=== PATIENT | female | born 1940 | race Caucasian/White ===

== ENCOUNTER 2019-07-24 22:24 | Inpatient (IN) | payer MEDICARE, OTHER ==
--- NOTE | 2019-07-24 22:49 | ED ---
General Adult HPI - General Chief complaint: Dizziness Stated complaint: Dizziness Time Seen by Provider: 07/24/19 22:37 Source: patient Mode of arrival: wheelchair Limitations: no limitations - History of Present Illness Initial comments: Dictation was produced using [employer] dictation software. please excuse any grammatical, word or spelling errors. This patient was cared for during a federal and state declared state of emergency secondary to Covid 19 Chief Complaint: 79-year-old female past medical history of cancer, dyslipidemia hypertension presents with generalized weakness, dizziness and vomiting. History of Present Illness: 79-year-old female. She is accompanied by HER-2 family members. According to family members starting at 7 PM patient began feeling significantly ill. The last couple days she's been having increased confusion, nausea, vomiting, generalized weakness. She is recently started on antibiotics for concerns of urinary tract infection. According to family member patient has had UTI sepsis in the past. Patient states she does have some dysuria. She does feel feverish. Granddaughter at bedside looks in the medical field is concerned about her well-being. Patient denies any focal neurologic de ficits. Denies vision loss. Denies any neck pain. She does have mild frontal headache. The ROS documented in this emergency department record has been reviewed and confirmed by me. Those systems with pertinent positive or negative responses have been documented in the HPI. All other systems are other negative and/or noncontributory. PHYSICAL EXAM: General Impression: Alert and oriented x3, lethargic HEENT: Normocephalic atraumatic, extra-ocular movements intact, pupils equal and reactive to light bilaterally, dry mucous membranes Cardiovascular: Heart regular rate and rhythm Chest: Mildly dyspneic Abdomen: abdomen soft, non-tender, non-distended, no organomegaly Musculoskeletal: Pulses present and equal in all extremities, no peripheral edema Motor: no focal deficits noted Neurological: CN II-XII grossly intact, no focal motor or sensory deficits noted Skin: Intact with no visualized rashes Psych: Normal affect and mood ED course: 79-year-old female presents today with generalized weakness, nausea vomiting. Vital signs upon arrival shows heart rate of 12, pulse vital signs within acceptable limits. She does report constitutional symptoms. Laboratory evaluation obtained. CBC unremarkable. Coag panel unremarkable. Metabolic panel shows mild anion gap acidosis. Rest of metabolic panel is negative. Coronavirus test is negative. Chest x-ray shows multifocal infil trates. Brain CT is unremarkable for any acute processes. Results were discussed with patient and family members. Disposition options were offered. They requested that patient be admitted to the hospital for medical monitoring. Patient is showing some signs of respiratory distress. She is not hypoxic however. Family reports that there is no safe disposition options considering that there are other multiple individuals that patient's living quarters. Discussed patient case with Dr. Marks who requests the patient be started on Lovenox, antibiotics and steroids. Dr. Marks is willing to accept patients care. EKG interpretation: Ventricular rate 93, normal sinus rhythm,. Interval to 8, QRS 96, QTC 450. No WA prolongation, no QTC prolongation, no ST or T-wave changes noted. . Overall, this EKG is unremarkable - Related Data Allergies Allergy/AdvReac Type Severity Reaction Status Date / Time acetaminophen [From Tylenol] Allergy Swelling Verified 07/24/19 22:35 Review of Systems ROS Statement: Those systems with pertinent positive or pertinent negative responses have been documented in the HPI. ROS Other: All systems not noted in ROS Statement are negative. Past Medical History Past Medical History: Cancer, Hyperlipidemia, Hypertension Additional Past Medical History / Comment(s): colon cancer History of Any Multi-Drug Resistant Organisms: None Reported Past Surgical History: Orthopedic Surgery Additional Past Surgical History / Comment(s): hip replacment. Past Psychological History: No Psychological Hx Reported Smoking Status: Never smoker Past Alcohol Use History: None Reported Past Drug Use History: None Reported General Exam Limitations: no limitations Course Vital Signs 07/24/19 22:27 Temperature 98.9 F Pulse Rate 102 H Respiratory 18 Rate Blood Pressure 170/98 O2 Sat by Pulse 96 Oximetry Medical Decision Making - Lab Data Result diagrams: 07/24/19 22:50 07/24/19 22:50 Lab Results 07/24/19 07/24/19 07/24/19 Range/Units 22:50 22:50 22:50 WBC 7.0 (3.8-10.6) k/uL RBC 3.83 (3.80-5.40) m/uL Hgb 11.7 (11.4-16.0) gm/dL Hct 36.8 (34.0-46.0) % MCV 96.1 (80.0-100.0) fL MCH 30.6 (25.0-35.0) pg MCHC 31.9 (31.0-37.0) g/dL RDW 13.2 (11.5-15.5) % Plt Count 283 (150-450) k/uL Neutrophils % 80 % Lymphocytes % 7 % Monocytes % 8 % Eosinophils % 2 % Basophils % 0 % Neutrophils # 5.6 (1.3-7.7) k/uL Lymphocytes # 0.5 L (1.0-4.8) k/uL Monocytes # 0.5 (0-1.0) k/uL Eosinophils # 0.2 (0-0.7) k/uL Basophils # 0.0 (0-0.2) k/uL PT 9.9 (9.0-12.0) sec INR 0.9 (<1.2) APTT 24.0 (22.0-30.0) sec Sodium (137-145) mmol/L Potassium (3.5-5.1) mmol/L Chloride (98-107) mmol/L Carbon Dioxide (22-30) mmol/L Anion Gap mmol/L BUN (7-17) mg/dL Creatinine (0.52-1.04) mg/dL Est GFR (CKD-EPI)AfAm (>60 ml/min/1.73 sqM) Est GFR (CKD-EPI)NonAf (>60 ml/min/1.73 sqM) Glucose (74-99) mg/dL Plasma Lactic Acid Luis (0.7-2.0) mmol/L Calcium (8.4-10.2) mg/dL Magnesium (1.6-2.3) mg/dL Total Bilirubin (0.2-1.3) mg/dL AST (14-36) U/L ALT (4-34) U/L Alkaline Phosphatase (38-126) U/L Troponin I (0.000-0.034) ng/mL C-Reactive Protein (<10.0) mg/L Total Protein (6.3-8.2) g/dL Albumin (3.5-5.0) g/dL Coronavirus (PCR) Detected A (Not Detectd) 07/24/19 07/24/19 07/24/19 Range/Units 22:50 22:50 22:50 WBC (3.8-10.6) k/uL RBC (3.80-5.40) m/uL Hgb (11.4-16.0) gm/dL Hct (34.0-46.0) % MCV (80.0-100.0) fL MCH (25.0-35.0) pg MCHC (31.0-37.0) g/dL RDW (11.5-15.5) % Plt Count (150-450) k/uL Neutrophils % % Lymphocytes % % Monocytes % % Eosinophils % % Basophils % % Neutrophils # (1.3-7.7) k/uL Lymphocytes # (1.0-4.8) k/uL Monocytes # (0-1.0) k/uL Eosinophils # (0-0.7) k/uL Basophils # (0-0.2) k/uL PT (9.0-12.0) sec INR (<1.2) APTT (22.0-30.0) sec Sodium 133 L (137-145) mmol/L Potassium 4.2 (3.5-5.1) mmol/L Chloride 100 (98-107) mmol/L Carbon Dioxide 21 L (22-30) mmol/L Anion Gap 12 mmol/L BUN 16 (7-17) mg/dL Creatinine 0.74 (0.52-1.04) mg/dL Est GFR (CKD-EPI)AfAm 89 (>60 ml/min/1.73 sqM) Est GFR (CKD-EPI)NonAf 77 (>60 ml/min/1.73 sqM) Glucose 121 H (74-99) mg/dL Plasma Lactic Acid Luis 0.9 (0.7-2.0) mmol/L Calcium 9.6 (8.4-10.2) mg/dL Magnesium 2.0 (1.6-2.3) mg/dL Total Bilirubin 1.0 (0.2-1.3) mg/dL AST 23 (14-36) U/L ALT 15 (4-34) U/L Alkaline Phosphatase 109 (38-126) U/L Troponin I <0.012 (0.000-0.034) ng/mL C-Reactive Protein 14.9 H (<10.0) mg/L Total Protein 7.6 (6.3-8.2) g/dL Albumin 4.3 (3.5-5.0) g/dL Coronavirus (PCR) (Not Detectd) Disposition Clinical Impression: COVID-19 Disposition: ADMITTED IP TO THIS HOSP Condition: Fair Referrals: Gerard Hernandez DO [Primary Care Provider] - 1-2 days Decision Time: 23:44
[2019-07-24 23:08] LABS: Basophils % (A) 0 %; Eosinophils # (A) 0.2 k/uL (0-0.7); Eosinophils % (A) 2 %; HCT 36.8 % (34.0-46.0); HGB 11.7 gm/dL (11.4-16.0); Lymphocytes # (A) 0.5 k/uL (1.0-4.8); Lymphocytes % (A) 7 %; MCH 30.6 pg (25.0-35.0); MCHC 31.9 g/dL (31.0-37.0); MCV 96.1 fL (80.0-100.0); Monocytes # (A) 0.5 k/uL (0-1.0); Monocytes % (A) 8 %; Neutrophils # (A) 5.6 k/uL (1.3-7.7); Neutrophils % (A) 80 %; Platelet Count 283 k/uL (150-450); RBC 3.83 m/uL (3.80-5.40); RDW 13.2 % (11.5-15.5)
[2019-07-24] MEDS ORDERED: ONDANSETRON 4 MG/2 ML VIAL IVP STA (23:13)
[2019-07-24 23:16] LABS: INR 0.9 (<1.2); Prothrombin Time 9.9 sec (9.0-12.0)
--- NOTE | 2019-07-24 23:16 | CT ---
EXAMINATION TYPE: CT brain wo con DATE OF EXAM: 07/24/2019 HISTORY: Confusion and headache, history of CVA. CT DLP: 1172.4 mGycm. Automated Exposure Control for Dose Reduction was Utilized. TECHNIQUE: CT scan of the head is performed without contrast. COMPARISON: None. FINDINGS: There is no acute intracranial hemorrhage or midline shift identified. There is diffuse v entricular and sulcal prominence consistent with diffuse cerebral atrophy. There is low-attenuation in the deep and periventricular white matter consistent with chronic small vessel ischemic change. Ol d infarct right frontal lobe axial image 33 is noted . The globes are intact and the visualized sinus es are clear. Vascular calcification distal bilateral internal carotid arteries is seen. IMPRESSION: No acute intracranial hemorrhage or midline shift. There is moderate diffuse cerebral a trophy and chronic small vessel ischemic change with old right frontal lobe infarct are noted..
--- NOTE | 2019-07-24 23:18 | XR ---
EXAMINATION TYPE: XR chest 1V portable DATE OF EXAM: 07/24/2019 COMPARISON: Chest x-ray November 09, 2011. HISTORY: Weakness. TECHNIQUE: Single AP portable frontal upright view of the chest is obtained. FINDINGS: There is chronic parenchymal change with multifocal areas of increased opacity bilaterally greatest in the lateral aspect right upper lung. No pleural effusion or pneumothorax identified anaid aterally. The cardiac silhouette size remains enlarged. Underlying distal convex scoliosis centered l ower thoracic spine. Metallic hardware from right shoulder arthroplasty partially imaged similar to p shaunnar. IMPRESSION: Chronic parenchymal changes and cardiomegaly with multifocal areas of acute infiltrate a nd/or atelectasis including both bases with most prominent area of involvement lateral aspect right u pper to midlung. COVID pneumonia is in differential.
[2019-07-24 23:22] LABS: Albumin 4.3 g/dL (3.5-5.0); C Reactive Protein 14.9 mg/L (<10.0); Calcium 9.6 mg/dL (8.4-10.2); Potassium 4.2 mmol/L (3.5-5.1); Total Protein 7.6 g/dL (6.3-8.2)
[2019-07-24] MEDS ORDERED: POLYETHYLENE GLYCOL 3350 17 GM POWD.PACK PO STA (23:38)
[2019-07-24] MEDS ORDERED: NALOXONE 0.4 MG/ML 1 ML VIAL IV PRN (23:38)
[2019-07-24 23:39] LABS: Appearance,Urine Clear (Clear); Bilirubin,Urine 1+ (Negative); Blood,Urine Negative (Negative); Color,Urine Dark Orange; Glucose,Urine (UA) Negative (Negative); Ketones,Urine Trace (Negative); Leukocyte Esterase,Urine Negative (Negative); Mucus,Urine Rare /hpf; Nitrite,Urine Positive (Negative); PH, Urine 6.5 (5.0-8.0); Protein,Urine Trace (Negative); RBC,Urine 1 /hpf (0-5); Specific Gravity,Urine 1.017 (1.001-1.035); Squamous Epithelial Cell,Urine 2 /hpf (0-4); WBC,Urine <1 /hpf (0-5)
[2019-07-24] MEDS ORDERED: cefTRIAXone IN SWFI 1,000 MG/10 ML SYRINGE IVP STA (23:42)
[2019-07-24] MEDS ORDERED: DEXAMETHASONE 4 MG TAB PO STA (23:42)
[2019-07-24] MEDS ORDERED: METOCLOPRAMIDE 5 MG/ML 2 ML VIAL IVP STA (23:54)
[2019-07-25] MEDS: SODIUM CHLORIDE 0.9% 1,000 ML IV SCH (00:01)
[2019-07-25] MEDS: ENOXAPARIN 40 MG/0.4 ML SYRINGE SQ SCH ×2 (00:02→09:08)
[2019-07-25] MEDS: FAMOTIDINE 20 MG TAB PO SCH ×2 (09:08→22:37)
[2019-07-25] MEDS ORDERED: HYDROcodone/APAP 5-325MG 1 EACH TAB PO PRN (10:49)
[2019-07-25] MEDS: AMOXIC-POT CLAV 500-125 MG 1 EACH TAB PO SCH ×2 (11:45→22:38)
[2019-07-25] MEDS: ATORVASTATIN 10 MG TAB PO SCH (11:45)
[2019-07-25] MEDS: LABETALOL 100 MG TAB PO SCH ×2 (11:46→22:38)
--- NOTE | 2019-07-25 13:31 | P.CNPUL ---
History of Present Illness Consult date: 07/25/19 Requesting physician: Constantin Marks Reason for consult: abnormal CXR/CT Chief complaint: Altered mental status, generalized weakness History of present illness: This is a pleasant 79-year-old female patient who follows with Dr. Zamorano as her primary care provider. She has a history of colon cancer, hypertension, hyperlipidemia. Over the past several days the patient had been having increas ed confusion, nausea, vomiting, generalized weakness. She was initiated on a antibiotic recently for urinary tract infection which she has had in the past. Computed tomography scan of the brain revealed no acute intracranial hemorrhage or midline shift. There is moderate diffuse cerebral atrophy and chronic small vessel changes with old right frontal lobe infarct. Chest x-ray revealed chronic parenchymal changes and cardiomegaly with multifocal areas of acute infiltrate and atelectasis with the most prominent area involving the right upper to mid lung. White count 7.0. Hemoglobin 11.7. Lymphocytes 0.5. D- dimer 0.51. Sodium 133. Potassium 4.2. Bicarb 21. Creatinine 0.74. Glucose 121. Troponins negative 2. LDH 506. C-reactive protein 14.9. Urine culture positive for nitrates. Hernandez virus by PCR is detected. She is seen today in consultation on the regular medical floor. She is currently awake and alert. Somewhat restless in bed. She denies any shortness of breath, cough or congestion. She is maintaining O2 saturations in the mid 90s on room air. Currently afebrile. Slightly tachycardic. She has been initiated on Augmentin, Plaquenil, Lovenox. Review of Systems REVIEW OF SYSTEMS: CONSTITUTIONAL: Altered mental status, generalized weakness. Denies any recent significant weight loss or weight gain. EYES: Denies change in vision. EARS, NOSE, MOUTH, THROAT: Denies headaches, denies sore throat. CARDIOVASCULAR: Denies chest pain, palpitations or syncopal episodes. RESPIRATORY: Positive for shortness of breath, cough, congestion no hemoptysis. GASTROINTESTINAL: Denies change in appetite, denies abdominal pain GENITOURINARY: Denies hematuria, denies infections. MUSKULOSKELETAL: Denies pain, denies swelling. INTEGUMENTARY: Denies rash, denies eczema. NEUROLOGICAL: Positive for recent memory loss, no recent seizure activity. PSYCHIATRIC: Denies anxiety, denies depression. HEMATOLOGIC/LYMPHATIC: Denies anemia, denies enlarged lymph nodes. Past Medical History Past Medical History: Cancer, Hyperlipidemia, Hypertension Additional Past Medical History / Comment(s): colon cancer History of Any Multi-Drug Resistant Organisms: None Reported Past Surgical History: Orthopedic Surgery Additional Past Surgical History / Comment(s): hip replacment. Past Psychological History: No Psychological Hx Reported Smoking Status: Unknown if ever smoked Past Alcohol Use History: None Reported Past Drug Use History: None Reported - Past Family History Father Additional Family Medical History / Comment(s): pt unable to give history Medications and Allergies Home Medications Medication Instructions Recorded Confirmed Type Amoxic-Pot Clav 500-125 mg 1 tab PO Q12HR 07/25/19 07/25/19 History [Augmentin 500-125 mg] Atorvastatin [Lipitor] 10 mg PO DAILY 07/25/19 07/25/19 History HYDROcodone/APAP 5-325MG [[place] 1 tab PO Q6H PRN 07/25/19 07/25/19 History 5-325] Labetalol HCl 100 mg PO BID 07/25/19 07/25/19 History hydrOXYzine HCL 25 mg PO Q6H PRN 07/25/19 07/25/19 History Allergies Allergy/AdvReac Type Severity Reaction Status Date / Time acetaminophen [From Tylenol] Allergy Swelling Verified 07/25/19 08:44 Physical Exam Vitals: Vital Signs Temp Pulse Pulse Resp BP BP Pulse Ox 07/25/19 11:25 98 F 104 H 17 146/82 97 07/25/19 08:05 98.2 F 98 18 145/75 97 07/25/19 04:00 18 07/25/19 03:47 98.7 F 106 H 18 136/84 96 07/25/19 02:05 18 07/25/19 01:29 99.0 F 105 H 18 158/89 99 07/24/19 22:27 98.9 F 102 H 18 170/98 96 Intake and Output 07/24/19 07/25/19 07/25/19 22:59 06:59 14:59 Other: Voiding Method Toilet Toilet Bedside Commode Bedside Commode # Voids 2 2 # Bowel Movements 2 Weight 54.431 kg 54.431 kg GENERAL EXAM: Alert, active, pleasant 79-year-old female patient, on room air, comfortable in no apparent distress. HEAD: Normocephalic. EYES: Normal reaction of pupils, equal size. NOSE: Clear with pink turbinates. THROAT: No erythema or exudates. NECK: No masses, no JVD. CHEST: No chest wall deformity. LUNGS: Equal air entry with bilateral scattered rhonchi. CVS: S1 and S2 normal with no audible murmur, regular rhythm. ABDOMEN: No hepatosplenomegaly, normal bowel sounds, no guarding or rigidity. SPINE: No scoliosis or deformity SKIN: No rashes CENTRAL NERVOUS SYSTEM: No focal deficits, tone is normal in all 4 extremities. EXTREMITIES: There is no peripheral edema. No clubbing, no cyanosis. Peripheral pulses are intact. Results - Laboratory Findings CBC and BMP: 07/24/19 22:50 07/24/19 22:50 PT/INR, D-dimer PT 9.9 sec (9.0-12.0) 07/24/19 22:50 INR 0.9 (<1.2) 07/24/19 22:50 D-Dimer 0.51 mg/L FEU (<0.60) 07/25/19 10:25 Abnormal lab findings: Abnormal Labs 07/24/19 07/24/19 07/24/19 22:50 22:50 22:50 Lymphocytes # 0.5 L Sodium 133 L Carbon Dioxide 21 L Glucose 121 H C-Reactive Protein 14.9 H Urine Protein Urine Ketones Urine Nitrite Urine Bilirubin Urine Mucus Coronavirus (PCR) Detected A 07/24/19 23:20 Lymphocytes # Sodium Carbon Dioxide Glucose C-Reactive Protein Urine Protein Trace H Urine Ketones Trace H Urine Nitrite Positive H Urine Bilirubin 1+ H Urine Mucus Rare H Coronavirus (PCR) - Diagnostic Findings Chest x-ray: image reviewed Assessment and Plan Assessment: Altered mental status, generalized weakness, shortness of breath secondary to CoVID 19 pneumonitis Acute urinary tract infection Hypertension Hyperlipidemia History of colon cancer Plan: The patient was seen and evaluated by Dr. James Initiated on Plaquenil, Augmentin, Lovenox Repeat chest x-ray in a.m. Repeat inflammatory markers in the a.m. We'll continue to follow and make further recommendations based on her clinical status I, the cosigning physician, performed a history & physical examination of the patient. Lungs sounds with bilateral scattered rhonchi. Maintaining good O2 saturations in the 90s on room air. I discussed the assessment and plan of care with my nurse practitioner, Simona Miller. I attest to the above consultation as dictated by her. Time with Patient: Greater than 30
[2019-07-25] MEDS: HYDROXYCHLOROQUINE SULFATE 200 MG TAB PO SCH ×2 (14:13→22:37)
--- NOTE | 2019-07-25 17:06 | P.HPIM ---
History of Present Illness H&P Date: 07/25/19 Chief Complaint: Weakness History of presenting complaint: This is a 79-year-old patient of Dr. Gerard Zamorano. Presented zoster through the ER. Patient presented to family members. Patient the evening and started feeling rather ill. The last 2 days she was having somewhat confusion nausea vomiting generalized weakness. He was recently started antibiotics for a UTI. She has been feeling feverish. Slight headache. Patient tested positive for COVID in the ER. Patient is put on plaque on her. Subcu Lovenox. ID and pulmonary were consulted. When I tried interview the patient this morning. Patient rather tired. Doesn't give much more of a history. Wants to be left alone Review of systems: GEN.: Tired feverish EYES: None HEENT: None NECK: None RESPIRATORY: Short of breath slight cough CARDIOVASCULAR: None GASTROINTESTINAL: None GENITOURINARY: None MUSCULOSKELETAL: Joint pains LYMPHATICS: None HEMATOLOGICAL: None PSYCHIATRY: Some confusion NEUROLOGICAL: None Past medical history to include: Hyperlipidemia, hypertension, colon cancer, arthritis Social history: Apparently lives with daughter. No history of smoking or alcohol. Family history: Patient cannot tell Physical examination: VITAL SIGNS: 98.9, 1 or 2, 18, 158/89, 99% on room air GENERAL: BMI 21.9, laying in bed, bit uncomfortable. EYES: Pupils equal. Conjunctiva normal. HEENT: External appearance of nose and ears normal, oral cavity grossly normal. NECK: JVD not raised; masses not palpable. HEART: First and second heart sounds are normal; no edema. LUNGS: Respiratory rate increased; decreased breath sounds. ABDOMEN: Soft, nontender, liver spleen not palpable, no masses palpable. PSYCH: [Patient only Hitesh occasional questions l. MUSCULOSKELETAL: Evidence of OA in multiple joints NEUROLOGICAL: [Cranial nerves grossly intact; no facial asymmetry, moving all 4 limbs LYMPHATICS: No lymph nodes palpable in the axilla and neck INVESTIGATIONS, reviewed in the clinical context: White count 7 hemoglobin 11.7 platelets 283 lymphocytes decreased at 0.5 potassium 4.2 creatinine 0.74 d-dimer 0.51 CRP 40.9 UA positive for nitrite COVID-19 PCR-detected EKG tracing personally reviewed by me-normal sinus rhythm Chest x-ray film personally reviewed by me-multiple infiltrates Assessment: -COVID-19 pneumonia multifocal, POA -Acute metabolic encephalopathy with delirium due to above, POA -Essential hypertension -Hyperlipidemia -Primary osteoarthritis -Acute UTI from cystitis Plan: Patient admitted. Started on Plaquenil. And IV fluids. Also therapeutic dose of Lovenox. Prognosis guarded. Both pulmonary and ID were consulted. Past Medical History Past Medical History: Cancer, Hyperlipidemia, Hypertension Additional Past Medical History / Comment(s): colon cancer History of Any Multi-Drug Resistant Organisms: None Reported Past Surgical History: Orthopedic Surgery Additional Past Surgical History / Comment(s): hip replacment. Past Psychological History: No Psychological Hx Reported Smoking Status: Unknown if ever smoked Past Alcohol Use History: None Reported Past Drug Use History: None Reported - Past Family History Father Additional Family Medical History / Comment(s): pt unable to give history Medications and Allergies Home Medications Medication Instructions Recorded Confirmed Type Amoxic-Pot Clav 500-125 mg 1 tab PO Q12HR 07/25/19 07/25/19 History [Augmentin 500-125 mg] Atorvastatin [Lipitor] 10 mg PO DAILY 07/25/19 07/25/19 History HYDROcodone/APAP 5-325MG [[place] 1 tab PO Q6H PRN 07/25/19 07/25/19 History 5-325] Labetalol HCl 100 mg PO BID 07/25/19 07/25/19 History hydrOXYzine HCL 25 mg PO Q6H PRN 07/25/19 07/25/19 History Allergies Allergy/AdvReac Type Severity Reaction Status Date / Time acetaminophen [From Tylenol] Allergy Swelling Verified 07/25/19 08:44 Physical Exam Vitals: Vital Signs Temp Pulse Pulse Resp BP BP Pulse Ox 07/25/19 08:05 98.2 F 98 18 145/75 97 07/25/19 04:00 18 07/25/19 03:47 98.7 F 106 H 18 136/84 96 07/25/19 02:05 18 07/25/19 01:29 99.0 F 105 H 18 158/89 99 07/24/19 22:27 98.9 F 102 H 18 170/98 96 Intake and Output 07/24/19 07/25/19 07/25/19 22:59 06:59 14:59 Other: Voiding Method Toilet Toilet Bedside Commode Bedside Commode # Voids 2 2 # Bowel Movements 2 Weight 54.431 kg 54.431 kg Results CBC & Chem 7: 07/24/19 22:50 07/24/19 22:50 Labs: Abnormal Lab Results - Last 24 Hours (Table) 07/24/19 07/24/19 07/24/19 Range/Units 22:50 22:50 22:50 Lymphocytes # 0.5 L (1.0-4.8) k/uL Sodium 133 L (137-145) mmol/L Carbon Dioxide 21 L (22-30) mmol/L Glucose 121 H (74-99) mg/dL C-Reactive Protein 14.9 H (<10.0) mg/L Urine Protein (Negative) Urine Ketones (Negative) Urine Nitrite (Negative) Urine Bilirubin (Negative) Urine Mucus (None) /hpf Coronavirus (PCR) Detected A (Not Detectd) 07/24/19 Range/Units 23:20 Lymphocytes # (1.0-4.8) k/uL Sodium (137-145) mmol/L Carbon Dioxide (22-30) mmol/L Glucose (74-99) mg/dL C-Reactive Protein (<10.0) mg/L Urine Protein Trace H (Negative) Urine Ketones Trace H (Negative) Urine Nitrite Positive H (Negative) Urine Bilirubin 1+ H (Negative) Urine Mucus Rare H (None) /hpf Coronavirus (PCR) (Not Detectd)
[2019-07-25] MEDS: LACTATED RINGERS 1,000 ML IV SCH (17:17)
[2019-07-25] MEDS: ENOXAPARIN 60 MG/0.6 ML SYRINGE SQ SCH (22:38)
--- NOTE | 2019-07-25 23:34 | P.CONS ---
History of Present Illness - Reason for Consult Consult date: 07/25/19 COVID 19 pneumonia Requesting physician: Constantin Marks - Chief Complaint weakness and cough x few days - History of Present Illness Patient is 79-year-old female with a past medical significant for colon cancer hypertension hyperlipidemia patient has been brought into the ER at [facility] with the patient starting getting ill last night patient was noted to have increased confusion and nausea and generalized weakness apparently recently completed course of antibiotic for UTI patient on presentation to the hospital has been afebrile she did have a normal white count however did have lymphopenia levels of normal CRP elevated LDH 506 urine was not significantly positive rodríguez PCR was positive CT of the brain was negative for any bleed chest x-ray did shows multifocal areas of acute infiltrate and atelectasis patient has been diagnosed with acute COVID-19 pneumonia she has been admitted to the floor infectious disease was consulted for further management of antibiotic therapy patient remains to be pleasantly confused and was unable to provide any history most information has been obtained from review the chart. Review of Systems Positive point has been mentioned in HPI complete review could not be obtained because of underlying mental status Past Medical History Past Medical History: Cancer, Hyperlipidemia, Hypertension Additional Past Medical History / Comment(s): colon cancer History of Any Multi-Drug Resistant Organisms: None Reported Past Surgical History: Orthopedic Surgery Additional Past Surgical History / Comment(s): hip replacment. Past Psychological History: No Psychological Hx Reported Smoking Status: Unknown if ever smoked Past Alcohol Use History: None Reported Past Drug Use History: None Reported - Past Family History Father Additional Family Medical History / Comment(s): pt unable to give history Medications and Allergies Home Medications Medication Instructions Recorded Confirmed Type Amoxic-Pot Clav 500-125 mg 1 tab PO Q12HR 07/25/19 07/25/19 History [Augmentin 500-125 mg] Atorvastatin [Lipitor] 10 mg PO DAILY 07/25/19 07/25/19 History HYDROcodone/APAP 5-325MG [[place] 1 tab PO Q6H PRN 07/25/19 07/25/19 History 5-325] Labetalol HCl 100 mg PO BID 07/25/19 07/25/19 History hydrOXYzine HCL 25 mg PO Q6H PRN 07/25/19 07/25/19 History Allergies Allergy/AdvReac Type Severity Reaction Status Date / Time acetaminophen [From Tylenol] Allergy Swelling Verified 07/25/19 08:44 Physical Exam Vitals: Vital Signs Temp Pulse Pulse Resp BP BP Pulse Ox 07/25/19 08:05 98.2 F 98 18 145/75 97 07/25/19 04:00 18 07/25/19 03:47 98.7 F 106 H 18 136/84 96 07/25/19 02:05 18 07/25/19 01:29 99.0 F 105 H 18 158/89 99 07/24/19 22:27 98.9 F 102 H 18 170/98 96 Intake and Output 07/24/19 07/25/19 07/25/19 22:59 06:59 14:59 Other: Voiding Method Toilet Toilet Bedside Commode Bedside Commode # Voids 2 2 # Bowel Movements 2 Weight 54.431 kg 54.431 kg GENERAL DESCRIPTION: Elderly female lying in bed, no distress. No tachypnea or accessory muscle of respiration use. HEENT: Shows Pallor , no scleral icterus. Oral mucous membrane is dry. NECK: Trachea central, no thyromegaly. LUNGS: Unlabored breathing. Decreased intensity breath sound. No wheeze or crackle. HEART: S1, S2, regular rate and rhythm. ABDOMEN: Soft, no tenderness , guarding or rigidity EXTREMITIES: No edema of feet. SKIN: No rash, no masses palpable. NEUROLOGICAL: The patient is awake, but pleasantly confused orientation could not determined. Results CBC & Chem 7: 07/24/19 22:50 07/24/19 22:50 Labs: Abnormal Lab Results - Last 24 Hours (Table) 07/24/19 07/24/19 07/24/19 Range/Units 22:50 22:50 22:50 Lymphocytes # 0.5 L (1.0-4.8) k/uL Sodium 133 L (137-145) mmol/L Carbon Dioxide 21 L (22-30) mmol/L Glucose 121 H (74-99) mg/dL C-Reactive Protein 14.9 H (<10.0) mg/L Urine Protein (Negative) Urine Ketones (Negative) Urine Nitrite (Negative) Urine Bilirubin (Negative) Urine Mucus (None) /hpf Coronavirus (PCR) Detected A (Not Detectd) 07/24/19 Range/Units 23:20 Lymphocytes # (1.0-4.8) k/uL Sodium (137-145) mmol/L Carbon Dioxide (22-30) mmol/L Glucose (74-99) mg/dL C-Reactive Protein (<10.0) mg/L Urine Protein Trace H (Negative) Urine Ketones Trace H (Negative) Urine Nitrite Positive H (Negative) Urine Bilirubin 1+ H (Negative) Urine Mucus Rare H (None) /hpf Coronavirus (PCR) (Not Detectd) Assessment and Plan Assessment: patient presented to hospital mental status changes confusion and weakness and a cough and this patient chest x-ray shows evidence of multifocal infiltrate patient did have lymphopenia elevated CRP likely clinical case of acute COVID-19 pneumonia that has been confirmed on nasopharyngeal swab (1) Pneumonia due to COVID-19 virus Current Visit: Yes Status: Acute Code(s): U07.1 - COVID-19; J12.89 - OTHER VIRAL PNEUMONIA SNOMED Code(s): 886708166 (2) COVID-19 Current Visit: Yes Status: Acute Code(s): U07.1 - COVID-19 SNOMED Code(s): 927832661 Plan: 1- We will start the patient on Plaquenil per protocol she is already started on Lovenox and famotidine with no hypoxemia will hold on any steroids 2-respiratory support and droplet isolation We will follow on clinical condition and cultures to further adjust medication if needed Thank you for this consultation we will follow the patient along with you Time with Patient: Greater than 30
[2019-07-26] MEDS: SODIUM CHLORIDE 0.9% 1,000 ML IV SCH ×2 (00:02→20:41)
[2019-07-26] MEDS: LACTATED RINGERS 1,000 ML IV SCH ×4 (02:23→20:46)
--- NOTE | 2019-07-26 06:50 | XR ---
EXAMINATION TYPE: XR chest 1V portable DATE OF EXAM: 07/26/2019 HISTORY: shortness of breath, COVID 19 pneumonia. REFERENCE: Previous study dated 07/24/2019. FINDINGS: There has been a right shoulder hemiarthroplasty. Lung volumes are prominent. The heart is mildly enlarged. There is some chronic scarring within the l ungs. There is increased opacity in the right upper lobe and I cannot exclude superimposed airspace d isease. There is blunting of both CP angles and I cannot exclude small effusions. IMPRESSION: 1. COPD. 2. CARDIOMEGALY. 3. I CANNOT EXCLUDE A RIGHT UPPER LOBE INFILTRATE.
[2019-07-26 07:45] LABS: Basophils % (A) 0 %; Eosinophils # (A) 0.1 k/uL (0-0.7); Eosinophils % (A) 1 %; HCT 37.7 % (34.0-46.0); HGB 12.2 gm/dL (11.4-16.0); Lymphocytes # (A) 0.9 k/uL (1.0-4.8); Lymphocytes % (A) 11 %; MCH 30.9 pg (25.0-35.0); MCHC 32.5 g/dL (31.0-37.0); MCV 95.1 fL (80.0-100.0); Mean Platelet Volume 7.3; Monocytes % (A) 12 %; Neutrophils # (A) 6.2 k/uL (1.3-7.7); Neutrophils % (A) 74 %; Platelet Count 321 k/uL (150-450); RBC 3.96 m/uL (3.80-5.40); RDW 13.4 % (11.5-15.5); WBC 8.4 k/uL (3.8-10.6)
[2019-07-26 07:56] LABS: Albumin 4.1 g/dL (3.5-5.0); C Reactive Protein 8.5 mg/L (<10.0); Calcium 9.6 mg/dL (8.4-10.2); Potassium 4.1 mmol/L (3.5-5.1); Total Bilirubin 0.7 mg/dL (0.2-1.3); Total Protein 7.2 g/dL (6.3-8.2)
[2019-07-26] MEDS: ENOXAPARIN 60 MG/0.6 ML SYRINGE SQ SCH ×2 (08:37→20:45)
[2019-07-26] MEDS: ATORVASTATIN 10 MG TAB PO SCH (08:37)
[2019-07-26] MEDS: AMOXIC-POT CLAV 500-125 MG 1 EACH TAB PO SCH ×2 (08:37→20:45)
[2019-07-26] MEDS: FAMOTIDINE 20 MG TAB PO SCH (08:37)
[2019-07-26] MEDS: LABETALOL 100 MG TAB PO SCH ×2 (08:37→20:45)
[2019-07-26] MEDS: HYDROXYCHLOROQUINE SULFATE 200 MG TAB PO SCH ×2 (08:37→20:45)
--- NOTE | 2019-07-26 11:55 | P.PN ---
Subjective Progress Note Date: 07/26/19 Principal diagnosis: Altered mental status, generalized weakness, shortness of breath secondary to CoVID 19 pneumonitis This is a pleasant 79-year-old female patient who follows with Dr. Zamorano as her primary care provider. She has a history of colon cancer, hypertension, hyperlipidemia. Over the past several days the patient had been having increased confusion, nausea, vomiting, generalized weakness. She was initiated on a antibiotic recently for urinary tract infection which she has had in the past. Computed tomography scan of the brain revealed no acute intracranial hemorrhage or midline shift. There is moderate diffuse cerebral atrophy and chronic small vessel changes with old right frontal lobe infarct. Chest x-ray revealed chronic parenchymal changes and cardiomegaly with multifocal areas of acute infiltrate and atelectasis with the most prominent area involving the right upper to mid lung. White count 7.0. Hemoglobin 11.7. Lymphocytes 0.5. D-dimer 0.51. Sodium 133. Potassium 4.2. Bicarb 21. Creatinine 0.74. Glucose 121. Troponins negative 2. LDH 506. C-reactive protein 14.9. Urine culture positive for nitrates. Hernandez virus by PCR is detected. She is seen today in consultation on the regular medical floor. She is currently awake and alert. Somewhat restless in bed. She denies any shortness of breath, cough or congestion. She is maintaining O2 saturations in the mid 90s on room air. Currently afebrile. Slightly tachycardic. She has been initiated on Augmentin, Plaquenil, Lovenox. The patient is seen today 07/26/2019 in follow-up on the regular medical floor. She is awake and alert in no acute distress. Maintaining O2 saturations in the 90s on room air. She's afebrile. Hemodynamically stable. Blood culture re veals no growth to date. White count 8.4. Hemoglobin 12.2. D-dimer 0.39. Sodium 139. Potassium 4.1. Creatinine 0.87. LDH 512. C-reactive protein 8.5. She is continued on Augmentin, Plaquenil, Lovenox. Follow-up chest x-ray reveals PE, cardiomegaly and an opacity in the right upper lobe. Objective - Vital Signs Vital signs: Vital Signs Temp 98.2 F 07/26/19 11:30 Pulse 76 07/26/19 11:30 Resp 18 07/26/19 11:30 BP 112/72 07/26/19 11:30 Pulse Ox 96 07/26/19 11:30 Intake & Output 07/25/19 07/26/19 07/26/19 18:59 06:59 18:59 Intake Total 470 698 Balance 470 698 Intake: Oral 470 698 Other: Voiding Method Toilet Toilet Toilet Bedside Commode Diaper # Voids 2 1 2 # Bowel Movements 1 2 - Exam GENERAL EXAM: Alert, active, pleasant 79-year-old female patient, on room air, comfortable in no apparent distress. HEAD: Normocephalic. EYES: Normal reaction of pupils, equal size. NOSE: Clear with pink turbinates. THROAT: No erythema or exudates. NECK: No masses, no JVD. CHEST: No chest wall deformity. LUNGS: Equal air entry with bilateral scattered rhonchi. CVS: S1 and S2 normal with no audible murmur, regular rhythm. ABDOMEN: No hepatosplenomegaly, normal bowel sounds, no guarding or rigidity. SPINE: No scoliosis or deformity SKIN: No rashes CENTRAL NERVOUS SYSTEM: No focal deficits, tone is normal in all 4 extremities. EXTREMITIES: There is no peripheral edema. No clubbing, no cyanosis. Peripheral pulses are intact. - Labs CBC & Chem 7: 07/26/19 07:30 07/26/19 07:30 Labs: Abnormal Lab Results - Last 24 Hours (Table) 07/26/19 07/26/19 Range/Units 07:30 07:30 Lymphocytes # 0.9 L (1.0-4.8) k/uL BUN 22 H (7-17) mg/dL Glucose 102 H (74-99) mg/dL AST 43 H (14-36) U/L Creatine Kinase 690 H (30-135) U/L Microbiology - Last 24 Hours (Table) 07/24/19 22:50 Blood Culture - Preliminary Blood No Growth after 24 hours Assessment and Plan Assessment: Altered mental status, generalized weakness, shortness of breath secondary to CoVID 19 pneumonitis Acute urinary tract infection Hypertension Hyperlipidemia History of colon cancer Plan: The patient was seen and evaluated by Dr. James Chest x-ray and labs reviewed Continued on Plaquenil, Augmentin, Lovenox We'll continue to follow and make further recommendations based on her clinical status I, the cosigning physician, performed a history & physical examination of the patient. Lungs sounds with bilateral scattered rhonchi. Maintaining good O2 s aturations in the 90s on room air. I discussed the assessment and plan of care with my nurse practitioner, Simona Miller. I attest to the above note as dictated by her.
--- NOTE | 2019-07-26 14:35 | P.PN ---
Subjective Progress Note Date: 07/26/19 Principal diagnosis: COVID- 19 infection Ms. Brown is a 79-year-old female with past medical history of hypertension, hyperlipidemia coming in with a chief complaint of confusion, nausea, vomiting and generalized weakness. Patient was recently started on antibiotics for a UT I. She was also having fever at home along with slight headaches. Patient was tested positive for COVID - 19 in the ER and so admitted to the hospital for further management. Infectious disease and pulmonary consultants on board and following the patient. On 07/26/2019 - patient is sitting up in the bed appears to be in no acute distress. No acute events reported by nursing staff. As per discussion with nursing staff patient is confused at baseline, but since admission she is more confused than her usual. When I went to examine have this morning patient was not having her clothes on, she says that she usually sleeps naked in her bed. Patient is not able to provide me any history as she is confused and kept picking at the sheets in the bed. She is on fall precautions. On reviewing her vitals temperature 98.2, heart rate 76, respiratory rate 18 saturating at 96% on room air with blood pressure 112/72. Her labs from this morning showing a white count of 8.4 d-dimer 0.39. Troponin less than 0.0122 since admission. Urine is positive for nitrites. Active Medications Hydrocodone Bitart/Acetaminophen ([place] 5-325) 1 each PO Q6H PRN PRN Reason: Pain Amoxicillin/Clavulanate Potassium (Augmentin 500-125 Mg) 1 each PO Q12HR [facility] Last Admin: 07/26/19 08:37 Dose: 1 each Documented by: Atorvastatin Calcium (Lipitor) 10 mg PO DAILY [facility] Last Admin: 07/26/19 08:37 Dose: 10 mg Documented by: Enoxaparin Sodium (Lovenox) 55 mg SQ Q12HR [facility] Last Admin: 07/26/19 08:37 Dose: 55 mg Documented by: Famotidine (Pepcid) 20 mg PO BID [facility] Last Admin: 07/26/19 08:37 Dose: 20 mg Documented by: Hydroxychloroquine Sulfate (Plaquenil) 200 mg PO BID [facility] Stop: 07/29/19 21:01 Last Admin: 07/26/19 08:37 Dose: 200 mg Documented by: Sodium Chloride (Saline 0.9%) 1,000 mls @ 20 mls/hr IV .Q24H [facility] Last Admin: 07/26/19 00:02 Dose: Not Given Documented by: Lactated Ringer's (Lactated Ringers) 1,000 mls @ 125 mls/hr IV .Q8H [facility] Last Admin: 07/26/19 08:37 Dose: Not Given Documented by: Labetalol HCl (Trandate) 100 mg PO BID [facility] Last Admin: 07/26/19 08:37 Dose: 100 mg Documented by: Naloxone HCl (Narcan) 0.2 mg IV Q2M PRN PRN Reason: Opioid Reversal Objective - Vital Signs Vital signs: Vital Signs Temp 98.2 F 07/26/19 11:30 Pulse 76 07/26/19 11:30 Resp 18 07/26/19 11:30 BP 112/72 07/26/19 11:30 Pulse Ox 96 07/26/19 11:30 Intake & Output 07/25/19 07/26/19 07/26/19 18:59 06:59 18:59 Intake Total 470 698 Balance 470 698 Intake: Oral 470 698 Other: Voiding Method Toilet Toilet Toilet Bedside Commode Diaper # Voids 2 1 2 # Bowel Movements 1 2 - Exam GEN. APPEARANCE: elderly female in bed , no acute distress HEENT: no pallor. No icterus. Oral mucosa is moist. RESPIRATORY EXAM: normal lung sounds bilaterally. No wheezing, no crackles, no rhonchi CARDIOVASCULAR EXAM: S1-S2 heard. No additional sounds. GI/ABDOMINAL EXAM: soft, normal bowel sounds. Nondistended, nontender. No guarding or rigidity. EXTREMITIES EXAM: No pedal edema. NEUROLOGICAL EXAM: alert, oriented X1, confused. Follows simple commands. No focal deficits. - Labs CBC & Chem 7: 07/26/19 07:30 07/26/19 07:30 Labs: Abnormal Lab Results - Last 24 Hours (Table) 07/26/19 07/26/19 Range/Units 07:30 07:30 Lymphocytes # 0.9 L (1.0-4.8) k/uL BUN 22 H (7-17) mg/dL Glucose 102 H (74-99) mg/dL AST 43 H (14-36) U/L Creatine Kinase 690 H (30-135) U/L Microbiology - Last 24 Hours (Table) 07/24/19 22:50 Blood Culture - Preliminary Blood No Growth after 24 hours Assessment and Plan Assessment: ASSESSMENT - COVID-19 pneumonia multifocal, POA -Acute metabolic encephalopathy with delirium due to above -Essential hypertension -Hyperlipidemia -Primary osteoarthritis -Acute UTI from cystitis PLAN: Patient has been started on hydroxychloroquine and Lovenox. ID Dr. Castellano, pulmonary consultants following the patient. Continue Augmentin for possible UTI. Blood cultures pending. Overall prognosis is guarded. Further recommendations to follow depending on the progress of the patient.
--- NOTE | 2019-07-26 17:47 | PN ---
PROGRESS NOTE DATE OF SERVICE: 07/26/2019 REASON FOR FOLLOWUP: Acute COVID-19 pneumonia. INTERVAL HISTORY: The patient is currently afebrile. The patient remains to be pleasantly confused. She is breathing comfortably on room air. Denies any chest pain or cough. No abdominal pain and no diarrhea reported. PHYSICAL EXAMINATION: Blood pressure 112/72 with a pulse of 73, temperature 98.2. She is 96% on room air. General description is an elderly female lying in bed in no distress. Respiratory system: Unlabored breathing. Clear to auscultation anteriorly. Heart S1, S2. Regular rate and rhythm. Abdomen soft, no tenderness. LABS: Hemoglobin is 12.8, white count 8.4, BUN of 22, creatinine 0.87. Blood culture has been negative. DIAGNOSTIC IMPRESSION AND PLAN: 1. Patient with acute Covid-19 pneumonia, to continue with Plaquenil, Lovenox, Diflucan, Hep-Lock. 2. Continue supportive care. MMODL / IJN: [id number] /
[2019-07-27 07:53] LABS: Basophils % (A) 0 %; Eosinophils # (A) 0.1 k/uL (0-0.7); Eosinophils % (A) 1 %; HCT 38.6 % (34.0-46.0); HGB 12.5 gm/dL (11.4-16.0); Lymphocytes # (A) 0.8 k/uL (1.0-4.8); Lymphocytes % (A) 12 %; MCHC 32.4 g/dL (31.0-37.0); MCV 95.8 fL (80.0-100.0); Mean Platelet Volume 7.2; Monocytes # (A) 0.8 k/uL (0-1.0); Monocytes % (A) 12 %; Neutrophils # (A) 4.8 k/uL (1.3-7.7); Neutrophils % (A) 73 %; Platelet Count 299 k/uL (150-450); RBC 4.04 m/uL (3.80-5.40); RDW 13.6 % (11.5-15.5); WBC 6.6 k/uL (3.8-10.6)
[2019-07-27] MEDS: ENOXAPARIN 60 MG/0.6 ML SYRINGE SQ SCH ×2 (08:04→20:13)
[2019-07-27] MEDS: LABETALOL 100 MG TAB PO SCH ×2 (08:04→20:13)
[2019-07-27] MEDS: AMOXIC-POT CLAV 500-125 MG 1 EACH TAB PO SCH ×2 (08:04→20:13)
[2019-07-27] MEDS: FAMOTIDINE 20 MG TAB PO SCH (08:04)
[2019-07-27] MEDS: ATORVASTATIN 10 MG TAB PO SCH (08:04)
[2019-07-27] MEDS: HYDROXYCHLOROQUINE SULFATE 200 MG TAB PO SCH ×2 (08:06→20:37)
[2019-07-27 08:12] LABS: C Reactive Protein 5.1 mg/L (<10.0); Calcium 9.6 mg/dL (8.4-10.2); Potassium 4.1 mmol/L (3.5-5.1); Total Bilirubin 0.8 mg/dL (0.2-1.3); Total Protein 7.2 g/dL (6.3-8.2)
[2019-07-27] MEDS: LACTATED RINGERS 1,000 ML IV SCH ×3 (08:12→20:38)
--- NOTE | 2019-07-27 11:29 | P.PN ---
Subjective Progress Note Date: 07/27/19 Principal diagnosis: Altered mental status, generalized weakness, shortness of breath secondary to CoVID 19 pneumonitis This is a pleasant 79-year-old female patient who follows with Dr. Zamorano as her primary care provider. She has a history of colon cancer, hypertension, hyperlipidemia. Over the past several days the patient had been having increased confusion, nausea, vomiting, generalized weakness. She was initiated on a antibiotic recently for urinary tract infection which she has had in the past. Computed tomography scan of the brain revealed no acute intracranial hemorrhage or midline shift. There is moderate diffuse cerebral atrophy and chronic small vessel changes with old right frontal lobe infarct. Chest x-ray revealed chronic parenchymal changes and cardiomegaly with multifocal areas of acute infiltrate and atelectasis with the most prominent area involving the right upper to mid lung. White count 7.0. Hemoglobin 11.7. Lymphocytes 0.5. D-dimer 0.51. Sodium 133. Potassium 4.2. Bicarb 21. Creatinine 0.74. Glucose 121. Troponins negative 2. LDH 506. C-reactive protein 14.9. Urine culture positive for nitrates. Hernandez virus by PCR is detected. She is seen today in consultation on the regular medical floor. She is currently awake and alert. Somewhat restless in bed. She denies any shortness of breath, cough or congestion. She is maintaining O2 saturations in the mid 90s on room air. Currently afebrile. Slightly tachycardic. She has been initiated on Augmentin, Plaquenil, Lovenox. The patient is seen today 07/26/2019 in follow-up on the regular medical floor. She is awake and alert in no acute distress. Maintaining O2 saturations in the 90s on room air. She's afebrile. Hemodynamically stable. Blood culture re veals no growth to date. White count 8.4. Hemoglobin 12.2. D-dimer 0.39. Sodium 139. Potassium 4.1. Creatinine 0.87. LDH 512. C-reactive protein 8.5. She is continued on Augmentin, Plaquenil, Lovenox. Follow-up chest x-ray reveals PE, cardiomegaly and an opacity in the right upper lobe. The patient is seen today 07/27/2019 in follow-up on the regular medical floor. She is currently resting comfortably in bed. Awake and alert in no acute distress. She is maintaining good O2 saturation in the mid 90s on room air. She's afebrile. Hemodynamically stable. Blood cultures revealed no growth. White count 6.6. Hemoglobin 12.5. Lymphocytes 0.8. Creatinine 0.86. LDH 599. Creatinine kinase 375. C-reactive protein 5.1. D-dimer 0.37. Objective - Vital Signs Vital signs: Vital Signs Temp 98 F 07/27/19 07:00 Pulse 80 07/27/19 07:00 Resp 18 07/27/19 07:00 BP 136/78 07/27/19 07:00 Pulse Ox 95 07/27/19 07:00 Intake & Output 07/26/19 07/27/19 07/27/19 18:59 06:59 18:59 Intake Total 1052 375 876 Balance 1052 375 876 Intake: Intake, IV Titration 375 Amount Lactated Ringers 1,000 ml 375 @ 125 mls/hr IV .Q8H [facility] Rx#:[id number] Oral 1052 876 Other: Voiding Method Toilet Toilet Toilet Diaper Diaper Diaper # Voids 2 2 2 # Bowel Movements 2 2 - Exam GENERAL EXAM: Alert, active, pleasant 79-year-old female patient, on room air, comfortable in no apparent distress HEAD: Normocephalic. EYES: Normal reaction of pupils, equal size. NOSE: Clear with pink turbinates. THROAT: No erythema or exudates. NECK: No masses, no JVD. CHEST: No chest wall deformity. LUNGS: Equal air entry with bilateral scattered rhonchi. CVS: S1 and S2 normal with no audible murmur, regular rhythm. ABDOMEN: No hepatosplenomegaly, normal bowel sounds, no guarding or rigidity. SPINE: No scoliosis or deformity SKIN: No rashes CENTRAL NERVOUS SYSTEM: No focal deficits, tone is normal in all 4 extremities. EXTREMITIES: There is no peripheral edema. No clubbing, no cyanosis. Peripheral pulses are intact. - Labs CBC & Chem 7: 07/27/19 06:42 07/27/19 06:42 Labs: Abnormal Lab Results - Last 24 Hours (Table) 07/27/19 07/27/19 Range/Units 06:42 06:42 Lymphocytes # 0.8 L (1.0-4.8) k/uL BUN 21 H (7-17) mg/dL AST 44 H (14-36) U/L Creatine Kinase 375 H (30-135) U/L Microbiology - Last 24 Hours (Table) 07/24/19 22:50 Blood Culture - Preliminary Blood No Growth after 48 hours Assessment and Plan Assessment: Altered mental status, generalized weakness, shortness of breath secondary to CoVID 19 pneumonitis Acute urinary tract infection Hypertension Hyperlipidemia History of colon cancer Plan The patient was seen and evaluated by Dr. James Chest x-ray and labs reviewed Stable from the pulmonary standpoint. On room air Continued on Plaquenil, Augmentin, Lovenox We'll continue to follow and make further recommendations based on her clinical status I, the cosigning physician, performed a history & physical examination of the patient. Lungs sounds with bilateral scattered rhonchi. Maintaining good O2 saturations in the 90s on room air. I discussed the assessment and plan of care with my nurse practitioner, Simona Miller. I attest to the above note as dictated by her.
--- NOTE | 2019-07-27 15:07 | P.PN ---
Subjective Progress Note Date: 07/27/19 Principal diagnosis: COVID- 19 infection Ms. Brown is a 79-year-old female with past medical history of hypertension, hyperlipidemia coming in with a chief complaint of confusion, nausea, vomiting and generalized weakness. Patient was recently started on antibiotics for a UTI . She was also having fever at home along with slight headaches. Patient was tested positive for COVID - 19 in the ER and so admitted to the hospital for further management. Infectious disease and pulmonary consultants on board and following the patient. On 07/26/2019 - patient is sitting up in the bed appears to be in no acute distress. No acute events reported by nursing staff. As per discussion with nursing staff patient is confused at baseline, but since admission she is more confused than her usual. When I went to examine have this morning patient was not having her clothes on, she says that she usually sleeps naked in her bed. Patient is not able to provide me any history as she is confused and kept picking at the sheets in the bed. She is on fall precautions. On reviewing her vitals temperature 98.2, heart rate 76, respiratory rate 18 saturating at 96% on room air with blood pressure 112/72. Her labs from this morning showing a white count of 8.4 d-dimer 0.39. Troponin less than 0.0122 since admission. Urine is positive for nitrites. On 07/27/2019- no acute events reported by nursing staff overnight. Patient is sitting up on the chest the bed appears to be confused, as she has dementia at baseline. Review of systems could not be done as the patient is confused. On reviewing the patient's vitals she is saturating at 96% on room blood pressure 1 13 x 76, heart rate around 88, T-max over the past 24 hours 98. On reviewing the patient's labs hemoglobin is 12.5, white count of 6.6, d-dimer of 0.37, BUN/creatinine 21, creatinine 0.86, LDH 599, C-reactive protein at 5.1. Active Medications Hydrocodone Bitart/Acetaminophen ([place] 5-325) 1 each PO Q6H PRN PRN Reason: Pain Amoxicillin/Clavulanate Potassium (Augmentin 500-125 Mg) 1 each PO Q12HR [facility] Last Admin: 07/27/19 08:04 Dose: 1 each Documented by: Atorvastatin Calcium (Lipitor) 10 mg PO DAILY [facility] Last Admin: 07/27/19 08:04 Dose: 10 mg Documented by: Enoxaparin Sodium (Lovenox) 55 mg SQ Q12HR [facility] Last Admin: 07/27/19 08:04 Dose: 55 mg Documented by: Famotidine (Pepcid) 20 mg PO DAILY [facility] Last Admin: 07/27/19 08:04 Dose: 20 mg Documented by: Hydroxychloroquine Sulfate (Plaquenil) 200 mg PO BID [facility] Stop: 07/29/19 21:01 Last Admin: 07/27/19 08:06 Dose: 200 mg Documented by: Sodium Chloride (Saline 0.9%) 1,000 mls @ 20 mls/hr IV .Q24H [facility] Last Admin: 07/26/19 20:41 Dose: Not Given Documented by: Lactated Ringer's (Lactated Ringers) 1,000 mls @ 125 mls/hr IV .Q8H [facility] Last Admin: 07/27/19 08:12 Dose: Not Given Documented by: Labetalol HCl (Trandate) 100 mg PO BID [facility] Last Admin: 07/27/19 08:04 Dose: 100 mg Documented by: Naloxone HCl (Narcan) 0.2 mg IV Q2M PRN PRN Reason: Opioid Reversal Objective - Vital Signs Vital signs: Vital Signs Temp 98 F 07/27/19 07:00 Pulse 80 07/27/19 07:00 Resp 18 07/27/19 07:00 BP 136/78 07/27/19 07:00 Pulse Ox 95 07/27/19 07:00 Intake & Output 07/26/19 07/27/19 07/27/19 18:59 06:59 18:59 Intake Total 1052 375 876 Balance 1052 375 876 Intake: Intake, IV Titration 375 Amount Lactated Ringers 1,000 ml 375 @ 125 mls/hr IV .Q8H [facility] Rx#:[id number] Oral 1052 876 Other: Voiding Method Toilet Toilet Toilet Diaper Diaper Diaper # Voids 2 2 2 # Bowel Movements 2 2 - Exam GEN. APPEARANCE: elderly female in bed , no acute distress HEENT: no pallor. No icterus. Oral mucosa is moist. RESPIRATORY EXAM: normal lung sounds bilaterally. No wheezing, no crackles, no rhonchi CARDIOVASCULAR EXAM: S1-S2 heard. No additional sounds. GI/ABDOMINAL EXAM: soft, normal bowel sounds. Nondistended, nontender. No guarding or rigidity. EXTREMITIES EXAM: No pedal edema. NEUROLOGICAL EXAM: alert, oriented X1, confused. Follows simple commands. No focal deficits. - Labs CBC & Chem 7: 07/27/19 06:42 07/27/19 06:42 Labs: Abnormal Lab Results - Last 24 Hours (Table) 07/27/19 07/27/19 Range/Units 06:42 06:42 Lymphocytes # 0.8 L (1.0-4.8) k/uL BUN 21 H (7-17) mg/dL AST 44 H (14-36) U/L Creatine Kinase 375 H (30-135) U/L Microbiology - Last 24 Hours (Table) 07/24/19 22:50 Blood Culture - Preliminary Blood No Growth after 48 hours Assessment and Plan Assessment: ASSESSMENT - COVID-19 pneumonia multifocal, POA -Acute metabolic encephalopathy with delirium due to above -Essential hypertension -Hyperlipidemia -Primary osteoarthritis -Acute UTI from cystitis - ? Dementia PLAN: Patient has been started on hydroxychloroquine and Lovenox. ID Dr. Castellano, pulmonary consultants following the patient. Continue Augmentin for possible UTI. Blood cultures no growth for 48 hours. Overall prognosis is guarded. Further recommendations to follow depending on the progress of the patient.
[2019-07-27] MEDS: SODIUM CHLORIDE 0.9% 1,000 ML IV SCH (16:12)
--- NOTE | 2019-07-28 00:35 | PN ---
PROGRESS NOTE DATE OF SERVICE: 07/27/2019 REASON FOR FOLLOWUP: Acute COVID-19 pneumonia. INTERVAL HISTORY: The patient is currently afebrile. The patient remains to be pleasantly confused. The patient is breathing comfortably on room air. No chest pain or cough. No abdominal pain or any diarrhea. PHYSICAL EXAMINATION: Blood pressure 128/82 with a pulse of 87, temperature 98.7. She is 92% on room air. General description is an elderly female lying in bed in no distress. RESPIRATORY SYSTEM: Unlabored breathing, clear to auscultation anteriorly. HEART: S1, S2. Regular rate and rhythm. ABDOMEN: Soft, no tenderness. LABS: Hemoglobin is 12.5, white count 6.6, BUN of 21, creatinine 0.86. DIAGNOSTIC IMPRESSION AND PLAN: Patient with acute COVID-19 pneumonia. Patient seemed to have shown some clinical response. She will continue on Plaquenil, Lovenox and monitor her clinical course closely. Continue with supportive care. MMODL / IJN: [id number] /
[2019-07-28 07:20] LABS: Basophils % (A) 0 %; Eosinophils # (A) 0.1 k/uL (0-0.7); Eosinophils % (A) 2 %; HCT 38.7 % (34.0-46.0); HGB 12.5 gm/dL (11.4-16.0); Lymphocytes # (A) 0.9 k/uL (1.0-4.8); Lymphocytes % (A) 15 %; MCH 31.3 pg (25.0-35.0); MCHC 32.3 g/dL (31.0-37.0); MCV 96.9 fL (80.0-100.0); Monocytes # (A) 0.7 k/uL (0-1.0); Monocytes % (A) 12 %; Neutrophils # (A) 4.1 k/uL (1.3-7.7); Neutrophils % (A) 68 %; Platelet Count 262 k/uL (150-450); RBC 3.99 m/uL (3.80-5.40); RDW 13.6 % (11.5-15.5)
[2019-07-28 07:33] LABS: Albumin 4.1 g/dL (3.5-5.0); C Reactive Protein 5.1 mg/L (<10.0); Calcium 9.5 mg/dL (8.4-10.2); Potassium 4.1 mmol/L (3.5-5.1); Total Bilirubin 0.9 mg/dL (0.2-1.3); Total Protein 7.2 g/dL (6.3-8.2)
[2019-07-28] MEDS: FAMOTIDINE 20 MG TAB PO SCH (08:13)
[2019-07-28] MEDS: AMOXIC-POT CLAV 500-125 MG 1 EACH TAB PO SCH ×2 (08:13→20:46)
[2019-07-28] MEDS: ATORVASTATIN 10 MG TAB PO SCH (08:13)
[2019-07-28] MEDS: LABETALOL 100 MG TAB PO SCH ×2 (08:13→20:46)
[2019-07-28] MEDS: ENOXAPARIN 60 MG/0.6 ML SYRINGE SQ SCH ×2 (08:13→21:32)
[2019-07-28] MEDS: HYDROXYCHLOROQUINE SULFATE 200 MG TAB PO SCH ×2 (08:13→20:46)
[2019-07-28] MEDS: SODIUM CHLORIDE 0.9% 1,000 ML IV SCH (08:14)
[2019-07-28] MEDS: LACTATED RINGERS 1,000 ML IV SCH ×3 (08:14→21:32)
--- NOTE | 2019-07-28 11:33 | P.PN ---
Subjective Progress Note Date: 07/28/19 Principal diagnosis: Altered mental status, generalized weakness, shortness of breath secondary to CoVID 19 pneumonitis This is a pleasant 79-year-old female patient who follows with Dr. Zamorano as her primary care provider. She has a history of colon cancer, hypertension, hyperlipidemia. Over the past several days the patient had been having increased confusion, nausea, vomiting, generalized weakness. She was initiated on a antibiotic recently for urinary tract infection which she has had in the past. Computed tomography scan of the brain revealed no acute intracranial hemorrhage or midline shift. There is moderate diffuse cerebral atrophy and chronic small vessel changes with old right frontal lobe infarct. Chest x-ray revealed chronic parenchymal changes and cardiomegaly with multifocal areas of acute infiltrate and atelectasis with the most prominent area involving the right upper to mid lung. White count 7.0. Hemoglobin 11.7. Lymphocytes 0.5. D-dimer 0.51. Sodium 133. Potassium 4.2. Bicarb 21. Creatinine 0.74. Glucose 121. Troponins negative 2. LDH 506. C-reactive protein 14.9. Urine culture positive for nitrates. Hernandez virus by PCR is detected. She is seen today in consultation on the regular medical floor. She is currently awake and alert. Somewhat restless in bed. She denies any shortness of breath, cough or congestion. She is maintaining O2 saturations in the mid 90s on room air. Currently afebrile. Slightly tachycardic. She has been initiated on Augmentin, Plaquenil, Lovenox. The patient is seen today 07/26/2019 in follow-up on the regular medical floor. She is awake and alert in no acute distress. Maintaining O2 saturations in the 90s on room air. She's afebrile. Hemodynamically stable. Blood culture re veals no growth to date. White count 8.4. Hemoglobin 12.2. D-dimer 0.39. Sodium 139. Potassium 4.1. Creatinine 0.87. LDH 512. C-reactive protein 8.5. She is continued on Augmentin, Plaquenil, Lovenox. Follow-up chest x-ray reveals PE, cardiomegaly and an opacity in the right upper lobe. The patient is seen today 07/27/2019 in follow-up on the regular medical floor. She is currently resting comfortably in bed. Awake and alert in no acute distress. She is maintaining good O2 saturation in the mid 90s on room air. She's afebrile. Hemodynamically stable. Blood cultures revealed no growth. White count 6.6. Hemoglobin 12.5. Lymphocytes 0.8. Creatinine 0.86. LDH 599. Creatinine kinase 375. C-reactive protein 5.1. D-dimer 0.37. The patient is seen today 07/28/2019 in follow-up on the regular medical floor. She is comfortably in bed. She is still has some altered mental status. Attempts to get out of bed on her own. A sitter is at the bedside. No shortness of breath cough or congestion. Maintaining O2 saturation in the mid 90s on room air. She's afebrile. Hemodynamically stable. Blood culture reveals no growth. White count 6.0. Hemoglobin 12.5. Lymphocytes 0.9. D-dimer 0.36. Sodium 137. Potassium 4.1. Creatinine 0.81. Glucose 100. LDH 544. Creatinine kinase 204. C-reactive protein 5.1. All trending down. She is received her fifth dose of 8 of the Plaquenil. She remains on Augmentin, Lovenox. Objective - Vital Signs Vital signs: Vital Signs Temp 98.8 F 07/28/19 11:00 Pulse 81 07/28/19 11:00 Resp 18 07/28/19 11:00 BP 111/80 07/28/19 11:00 Pulse Ox 95 07/28/19 11:00 Intake & Output 07/27/19 07/28/19 07/28/19 18:59 06:59 18:59 Intake Total 1230 375 Balance 1230 375 Intake: Intake, IV Titration 375 Amount Lactated Ringers 1,000 ml 375 @ 125 mls/hr IV .Q8H [facility] Rx#:[id number] Oral 1230 Other: Voiding Method Toilet Toilet Toilet Diaper Diaper Diaper # Voids 2 1 # Bowel Movements 2 1 - Exam GENERAL EXAM: Alert, active, pleasant 79-year-old female patient, on room air, comfortable in no apparent distress HEAD: Normocephalic. EYES: Normal reaction of pupils, equal size. NOSE: Clear with pink turbinates. THROAT: No erythema or exudates. NECK: No masses, no JVD. CHEST: No chest wall deformity. LUNGS: Equal air entry with bilateral scattered rhonchi. CVS: S1 and S2 normal with no audible murmur, regular rhythm. ABDOMEN: No hepatosplenomegaly, normal bowel sounds, no guarding or rigidity. SPINE: No scoliosis or deformity SKIN: No rashes CENTRAL NERVOUS SYSTEM: No focal deficits, tone is normal in all 4 extremities. EXTREMITIES: There is no peripheral edema. No clubbing, no cyanosis. Peripheral pulses are intact. - Labs CBC & Chem 7: 07/28/19 07:04 07/28/19 07:04 Labs: Abnormal Lab Results - Last 24 Hours (Table) 07/28/19 07/28/19 Range/Units 07:04 07:04 Lymphocytes # 0.9 L (1.0-4.8) k/uL BUN 22 H (7-17) mg/dL Glucose 100 H (74-99) mg/dL AST 39 H (14-36) U/L Creatine Kinase 205 H (30-135) U/L Microbiology - Last 24 Hours (Table) 07/24/19 22:50 Blood Culture - Preliminary Blood No Growth after 72 hours Assessment and Plan Assessment: Altered mental status, generalized weakness, shortness of breath secondary to CoVID 19 pneumonitis Acute urinary tract infection Hypertension Hyperlipidemia History of colon cancer Plan The patient was seen and evaluated by Dr. Lalo Carlson from the pulmonary standpoint. On room air Continued on Plaquenil, Augmentin, Lovenox Cleared for discharge from the pulmonary standpoint Discharge planning is in place I, the cosigning physician, performed a history & physical examination of the patient. Lungs sounds with bilateral scattered rhonchi. Maintaining good O2 saturations in the 90s on room air. I discussed the assessment and plan of care with my nurse practitioner, Simona Miller. I attest to the above note as dictated by her.
--- NOTE | 2019-07-28 13:15 | P.PN ---
Subjective Progress Note Date: 07/28/19 Principal diagnosis: COVID- 19 infection Ms. Brown is a 79-year-old female with past medical history of hypertension, hyperlipidemia coming in with a chief complaint of confusion, nausea, vomiting and generalized weakness. Patient was recently started on antibiotics for a UTI . She was also having fever at home along with slight headaches. Patient was tested positive for COVID - 19 in the ER and so admitted to the hospital for further management. Infectious disease and pulmonary consultants on board and following the patient. On 07/26/2019 - patient is sitting up in the bed appears to be in no acute distress. No acute events reported by nursing staff. As per discussion with nursing staff patient is confused at baseline, but since admission she is more confused than her usual. When I went to examine have this morning patient was not having her clothes on, she says that she usually sleeps naked in her bed. Patient is not able to provide me any history as she is confused and kept picking at the sheets in the bed. She is on fall precautions. On reviewing her vitals temperature 98.2, heart rate 76, respiratory rate 18 saturating at 96% on room air with blood pressure 112/72. Her labs from this morning showing a white count of 8.4 d-dimer 0.39. Troponin less than 0.0122 since admission. Urine is positive for nitrites. On 07/27/2019- no acute events reported by nursing staff overnight. Patient is sitting up on the chest the bed appears to be confused, as she has dementia at baseline. Review of systems could not be done as the patient is confused. On reviewing the patient's vitals she is saturating at 96% on room blood pressure 1 13 x 76, heart rate around 88, T-max over the past 24 hours 98. On reviewing the patient's labs hemoglobin is 12.5, white count of 6.6, d-dimer of 0.37, BUN/creatinine 21, creatinine 0.86, LDH 599, C-reactive protein at 5.1. On 07/28/2019 - overnight patient became very confused and she was trying to get out of the bed, so a safe sitter at the bedside arranged. Patient is comfortably lying in bed, she has been pulling had sheets. Review of systems could not be done and she is confused. As per discussion with nursing staff, this morning patient's granddaughter came to see her and mentioned that the patient has dementia at baseline, she thinks she is more confused than her usual. On reviewing the patient's vitals T-max over the past 24 hours 98.6, heart rate around 80s, respiratory rate 18, saturating 95% on room air. Patient's labs from this morning white count of 6, hemoglobin stable around 12.5, creatinine 0.81. LDH 544, CRP 5.1. D-dimer 0.36. Active Medications Hydrocodone Bitart/Acetaminophen ([place] 5-325) 1 each PO Q6H PRN PRN Reason: Pain Amoxicillin/Clavulanate Potassium (Augmentin 500-125 Mg) 1 each PO Q12HR [facility] Last Admin: 07/28/19 08:13 Dose: 1 each Documented by: Atorvastatin Calcium (Lipitor) 10 mg PO DAILY [facility] Last Admin: 07/28/19 08:13 Dose: 10 mg Documented by: Enoxaparin Sodium (Lovenox) 55 mg SQ Q12HR [facility] Last Admin: 07/28/19 08:13 Dose: 55 mg Documented by: Famotidine (Pepcid) 20 mg PO DAILY [facility] Last Admin: 07/28/19 08:13 Dose: 20 mg Documented by: Hydroxychloroquine Sulfate (Plaquenil) 200 mg PO BID [facility] Stop: 07/29/19 21:01 Last Admin: 07/28/19 08:13 Dose: 200 mg Documented by: Sodium Chloride (Saline 0.9%) 1,000 mls @ 20 mls/hr IV .Q24H [facility] Last Admin: 07/28/19 08:14 Dose: Not Given Documented by: Lactated Ringer's (Lactated Ringers) 1,000 mls @ 125 mls/hr IV .Q8H [facility] Last Admin: 07/28/19 08:14 Dose: Not Given Documented by: Labetalol HCl (Trandate) 100 mg PO BID [facility] Last Admin: 07/28/19 08:13 Dose: 100 mg Documented by: Naloxone HCl (Narcan) 0.2 mg IV Q2M PRN PRN Reason: Opioid Reversal Objective - Vital Signs Vital signs: Vital Signs Temp 98.8 F 07/28/19 11:00 Pulse 81 07/28/19 11:00 Resp 18 07/28/19 11:00 BP 111/80 07/28/19 11:00 Pulse Ox 95 07/28/19 11:00 Intake & Output 07/27/19 07/28/19 07/28/19 18:59 06:59 18:59 Intake Total 1230 375 Balance 1230 375 Intake: Intake, IV Titration 375 Amount Lactated Ringers 1,000 ml 375 @ 125 mls/hr IV .Q8H [facility] Rx#:[id number] Oral 1230 Other: Voiding Method Toilet Toilet Toilet Diaper Diaper Diaper # Voids 2 1 # Bowel Movements 2 1 - Exam GEN. APPEARANCE: elderly female in bed , no acute distress HEENT: no pallor. No icterus. Oral mucosa is moist. RESPIRATORY EXAM: normal lung sounds bilaterally. No wheezing, no crackles, no rhonchi CARDIOVASCULAR EXAM: S1-S2 heard. No additional sounds. GI/ABDOMINAL EXAM: soft, normal bowel sounds. Nondistended, nontender. No guarding or rigidity. EXTREMITIES EXAM: No pedal edema. NEUROLOGICAL EXAM: alert, oriented X1, confused. No focal deficits. - Labs CBC & Chem 7: 07/28/19 07:04 07/28/19 07:04 Labs: Abnormal Lab Results - Last 24 Hours (Table) 07/28/19 07/28/19 Range/Units 07:04 07:04 Lymphocytes # 0.9 L (1.0-4.8) k/uL BUN 22 H (7-17) mg/dL Glucose 100 H (74-99) mg/dL AST 39 H (14-36) U/L Creatine Kinase 205 H (30-135) U/L Microbiology - Last 24 Hours (Table) 07/24/19 22:50 Blood Culture - Preliminary Blood No Growth after 72 hours Assessment and Plan Assessment: ASSESSMENT - COVID-19 pneumonia multifocal -Acute metabolic encephalopathy with delirium due to above -Essential hypertension -Hyperlipidemia -Primary osteoarthritis -Acute UTI from cystitis - Dementia - possibly senile dementia PLAN: Patient to be continued on hydroxychloroquine and Lovenox for DVT prophylaxis. Continue on Timentin for UTI. ID Dr. Castellano, pulmonary consultants following the patient. Blood cultures no growth. Overall prognosis is guarded. Further recommendations to follow depending on the progress of the patient.
--- NOTE | 2019-07-28 15:30 | PN ---
PROGRESS NOTE DATE OF SERVICE: 07/28/2019 REASON FOR FOLLOWUP: Acute COVID-19 pneumonia. INTERVAL HISTORY: The patient is currently afebrile. The patient is breathing comfortably. Denies having any chest pain or cough. No abdominal pain. No diarrhea has been reported. Remains pleasantly confused, though less agitated. PHYSICAL EXAMINATION: Blood pressure is 111/80 with a pulse of 81, temperature 98.8. She is 95% on room air. General description is an elderly female lying in bed in no distress. RESPIRATORY SYSTEM: Unlabored breathing. Clear to auscultation anteriorly. HEART: S1, S2. Regular rate and rhythm. ABDOMEN: Soft. No tenderness. LABS: Hemoglobin is 12.5, white count 6.0, BUN of 22, creatinine 0.81. Blood culture has been negative. DIAGNOSTIC IMPRESSION AND PLAN: Patient with acute COVID-19 pneumonia. The patient seems to have shown clinical improvement. She has been tolerating her Plaquenil; to continue her 5-day course of therapy along with Lovenox, Pepcid, and monitor clinical course closely. MMODL / IJN: [id number] /
[2019-07-29] MEDS: QUEtiapine 25 MG TAB PO PRN ×2 (00:41→22:24)
[2019-07-29] MEDS: LABETALOL 100 MG TAB PO SCH ×2 (08:06→22:24)
[2019-07-29] MEDS: FAMOTIDINE 20 MG TAB PO SCH (08:06)
[2019-07-29] MEDS: AMOXIC-POT CLAV 500-125 MG 1 EACH TAB PO SCH ×2 (08:06→22:24)
[2019-07-29] MEDS: HYDROXYCHLOROQUINE SULFATE 200 MG TAB PO SCH ×2 (08:06→22:24)
[2019-07-29] MEDS: ATORVASTATIN 10 MG TAB PO SCH (08:07)
[2019-07-29] MEDS: ENOXAPARIN 60 MG/0.6 ML SYRINGE SQ SCH ×2 (08:07→22:24)
[2019-07-29] MEDS: LACTATED RINGERS 1,000 ML IV SCH ×2 (08:12→10:40)
--- NOTE | 2019-07-29 13:58 | P.PN ---
Subjective Progress Note Date: 07/29/19 Principal diagnosis: Altered mental status, generalized weakness, shortness of breath secondary to CoVID 19 pneumonitis This is a pleasant 79-year-old female patient who follows with Dr. Zamorano as her primary care provider. She has a history of colon cancer, hypertension, hyperlipidemia. Over the past several days the patient had been having increased confusion, nausea, vomiting, generalized weakness. She was initiated on a antibiotic recently for urinary tract infection which she has had in the past. Computed tomography scan of the brain revealed no acute intracranial hemorrhage or midline shift. There is moderate diffuse cerebral atrophy and chronic small vessel changes with old right frontal lobe infarct. Chest x-ray revealed chronic parenchymal changes and cardiomegaly with multifocal areas of acute infiltrate and atelectasis with the most prominent area involving the right upper to mid lung. White count 7.0. Hemoglobin 11.7. Lymphocytes 0.5. D-dimer 0.51. Sodium 133. Potassium 4.2. Bicarb 21. Creatinine 0.74. Glucose 121. Troponins negative 2. LDH 506. C-reactive protein 14.9. Urine culture positive for nitrates. Hernandez virus by PCR is detected. She is seen today in consultation on the regular medical floor. She is currently awake and alert. Somewhat restless in bed. She denies any shortness of breath, cough or congestion. She is maintaining O2 saturations in the mid 90s on room air. Currently afebrile. Slightly tachycardic. She has been initiated on Augmentin, Plaquenil, Lovenox. The patient is seen today 07/26/2019 in follow-up on the regular medical floor. She is awake and alert in no acute distress. Maintaining O2 saturations in the 90s on room air. She's afebrile. Hemodynamically stable. Blood culture re veals no growth to date. White count 8.4. Hemoglobin 12.2. D-dimer 0.39. Sodium 139. Potassium 4.1. Creatinine 0.87. LDH 512. C-reactive protein 8.5. She is continued on Augmentin, Plaquenil, Lovenox. Follow-up chest x-ray reveals PE, cardiomegaly and an opacity in the right upper lobe. The patient is seen today 07/27/2019 in follow-up on the regular medical floor. She is currently resting comfortably in bed. Awake and alert in no acute distress. She is maintaining good O2 saturation in the mid 90s on room air. She's afebrile. Hemodynamically stable. Blood cultures revealed no growth. White count 6.6. Hemoglobin 12.5. Lymphocytes 0.8. Creatinine 0.86. LDH 599. Creatinine kinase 375. C-reactive protein 5.1. D-dimer 0.37. The patient is seen today 07/28/2019 in follow-up on the regular medical floor. She is comfortably in bed. She is still has some altered mental status. Attempts to get out of bed on her own. A sitter is at the bedside. No shortness of breath cough or congestion. Maintaining O2 saturation in the mid 90s on room air. She's afebrile. Hemodynamically stable. Blood culture reveals no growth. White count 6.0. Hemoglobin 12.5. Lymphocytes 0.9. D-dimer 0.36. Sodium 137. Potassium 4.1. Creatinine 0.81. Glucose 100. LDH 544. Creatinine kinase 204. C-reactive protein 5.1. All trending down. She is received her fifth dose of 8 of the Plaquenil. She remains on Augmentin, Lovenox. The patient is seen today 07/29/2019 in follow-up on the regular medical floor. She is awake and alert. Still somewhat altered. A sitter is at the bedside. She continues to maintain good O2 saturations in the high 90s on room air. She's been afebrile. Hemodynamically stable. Currently on Augmentin. Remains on Levaquin at 55 mg subcutaneous every 12 hours. Received dose 7 of 8 of her Plaquenil. Objective - Vital Signs Vital signs: Vital Signs Temp 97.9 F 07/29/19 10:51 Pulse 69 07/29/19 10:51 Resp 16 07/29/19 10:51 BP 116/78 07/29/19 10:51 Pulse Ox 98 07/29/19 10:51 Intake & Output 07/28/19 07/29/19 07/29/19 18:59 06:59 18:59 Intake Total 260 200 Balance 260 200 Intake: Oral 260 200 Other: Voiding Method Toilet Toilet Toilet Diaper Diaper Diaper # Voids 5 1 3 # Bowel Movements 2 1 1 - Exam GENERAL EXAM: Alert, confused, pleasant 79-year-old female patient, on room air, comfortable in no apparent distress HEAD: Normocephalic. EYES: Normal reaction of pupils, equal size. NOSE: Clear with pink turbinates. THROAT: No erythema or exudates. NECK: No masses, no JVD. CHEST: No chest wall deformity. LUNGS: Equal air entry with bilateral scattered rhonchi. CVS: S1 and S2 normal with no audible murmur, regular rhythm. ABDOMEN: No hepatosplenomegaly, normal bowel sounds, no guarding or rigidity. SPINE: No scoliosis or deformity SKIN: No rashes CENTRAL NERVOUS SYSTEM: No focal deficits, tone is normal in all 4 extremities. EXTREMITIES: There is no peripheral edema. No clubbing, no cyanosis. Peripheral pulses are intact. - Labs CBC & Chem 7: 07/28/19 07:04 07/28/19 07:04 Labs: Microbiology - Last 24 Hours (Table) 07/24/19 22:50 Blood Culture - Preliminary Blood No Growth after 96 hours Assessment and Plan Assessment: Altered mental status, generalized weakness, shortness of breath secondary to CoVID 19 pneumonitis Acute urinary tract infection Hypertension Hyperlipidemia History of colon cancer Plan The patient was seen and evaluated by Dr. May Cleared for discharge from the pulmonary standpoint Discharge planning is in place I, the cosigning physician, performed a history & physical examination of the patient. Lungs sounds with bilateral scattered rhonchi. Maintaining good O2 saturations in the 90s on room air. I discussed the assessment and plan of care with my nurse practitioner, Simona Miller. I attest to the above note as dictated by her.
--- NOTE | 2019-07-29 14:04 | PN ---
PROGRESS NOTE DATE OF SERVICE: 07/29/2019 REASON FOR FOLLOWUP: Acute COVID-19 pneumonia. INTERVAL HISTORY: The patient is currently afebrile. The patient remains to be pleasantly confused. Patient denies any chest pain or cough. No abdominal pain. No diarrhea has been reported. PHYSICAL EXAMINATION: Blood pressure is 115/70 with a pulse of 89, temperature 97.9. She is 98% on room air. General description is an elderly female, lying in bed in no distress. RESPIRATORY SYSTEM: Unlabored breathing, clear to auscultation anteriorly. HEART: S1, S2. Regular rhythm and rhythm. ABDOMEN: Soft, no tenderness. LABS: No new labs have been obtained today. DIAGNOSTIC IMPRESSION AND PLAN: Patient with acute COVID-19 pneumonia, patient has completed her Plaquenil therapy today. She is on Lovenox and Pepcid to continue and monitor clinical course closely. MMODL / IJN: [id number] /
[2019-07-30] MEDS: SODIUM CHLORIDE 0.9% 1,000 ML IV SCH ×2 (01:48→19:59)
[2019-07-30] MEDS: LACTATED RINGERS 1,000 ML IV SCH ×2 (03:40→19:58)
[2019-07-30] MEDS: FAMOTIDINE 20 MG TAB PO SCH (09:25)
[2019-07-30] MEDS: AMOXIC-POT CLAV 500-125 MG 1 EACH TAB PO SCH ×2 (09:25→19:59)
[2019-07-30] MEDS: ENOXAPARIN 60 MG/0.6 ML SYRINGE SQ SCH ×2 (09:26→19:59)
[2019-07-30] MEDS: ATORVASTATIN 10 MG TAB PO SCH (09:26)
[2019-07-30] MEDS: LABETALOL 100 MG TAB PO SCH ×2 (09:26→19:59)
--- NOTE | 2019-07-30 11:25 | P.PN ---
Subjective Progress Note Date: 07/29/19 Principal diagnosis: COVID- 19 infection Ms. Brown is a 79-year-old female with past medical history of hypertension, hyperlipidemia coming in with a chief complaint of confusion, nausea, vomiting and generalized weakness. Patient was recently started on antibiotics for a U TI. She was also having fever at home along with slight headaches. Patient was tested positive for COVID - 19 in the ER and so admitted to the hospital for further management. Infectious disease and pulmonary consultants on board and following the patient. On 07/26/2019 - patient is sitting up in the bed appears to be in no acute distress. No acute events reported by nursing staff. As per discussion with nursing staff patient is confused at baseline, but since admission she is more confused than her usual. When I went to examine have this morning patient was not having her clothes on, she says that she usually sleeps naked in her bed. Patient is not able to provide me any history as she is confused and kept picking at the sheets in the bed. She is on fall precautions. On reviewing her vitals temperature 98.2, heart rate 76, respiratory rate 18 saturating at 96% on room air with blood pressure 112/72. Her labs from this morning showing a white count of 8.4 d-dimer 0.39. Troponin less than 0.0122 since admission. Urine is positive for nitrites. On 07/27/2019- no acute events reported by nursing staff overnight. Patient is sitting up on the chest the bed appears to be confused, as she has dementia at baseline. Review of systems could not be done as the patient is confused. On reviewing the patient's vitals she is saturating at 96% on room blood pressure 1 13 x 76, heart rate around 88, T-max over the past 24 hours 98. On reviewing the patient's labs hemoglobin is 12.5, white count of 6.6, d-dimer of 0.37, BUN/creatinine 21, creatinine 0.86, LDH 599, C-reactive protein at 5.1. On 07/28/2019 - overnight patient became very confused and she was trying to get out of the bed, so a safe sitter at the bedside arranged. Patient is comfortably lying in bed, she has been pulling had sheets. Review of systems could not be done and she is confused. As per discussion with nursing staff, this morning patient's granddaughter came to see her and mentioned that the patient has dementia at baseline, she thinks she is more confused than her usual. On reviewing the patient's vitals T-max over the past 24 hours 98.6, heart rate around 80s, respiratory rate 18, saturating 95% on room air. Patient's labs from this morning white count of 6, hemoglobin stable around 12.5, creatinine 0.81. LDH 544, CRP 5.1. D-dimer 0.36. 07/29/2019 Patient is currently awake alert and mentation at her baseline. Continuewith bedside sitter.otherwise saturating well on roommate. Patient has been afebrile. Currently on antibiotics and anticoagulation. Patient is also get ting hydroxychloroquine. Pulmonary is following. Family's trying to take at home with home physical therapy. Social work is following. Current medications reviewed. Objective - Vital Signs Vital signs: Vital Signs Temp 98.1 F 07/29/19 14:34 Pulse 74 07/29/19 14:34 Resp 16 07/29/19 14:34 BP 126/81 07/29/19 14:34 Pulse Ox 96 07/29/19 14:34 Intake & Output 07/29/19 07/29/19 07/30/19 06:59 18:59 06:59 Intake Total 200 Balance 200 Intake: Oral 200 Other: Voiding Method Toilet Toilet Diaper Diaper # Voids 1 3 # Bowel Movements 1 1 - Exam GEN. APPEARANCE: elderly female in bed , no acute distress HEENT: no pallor. No icterus. Oral mucosa is moist. RESPIRATORY EXAM: normal lung sounds bilaterally. No wheezing, no crackles, no rhonchi CARDIOVASCULAR EXAM: S1-S2 heard. No additional sounds. GI/ABDOMINAL EXAM: soft, normal bowel sounds. Nondistended, nontender. No guarding or rigidity. EXTREMITIES EXAM: No pedal edema. NEUROLOGICAL EXAM: alert, oriented X1, confused. No focal deficits. - Labs CBC & Chem 7: 07/28/19 07:04 07/28/19 07:04 Labs: Microbiology - Last 24 Hours (Table) 07/24/19 22:50 Blood Culture - Preliminary Blood No Growth after 96 hours Assessment and Plan Assessment: ASSESSMENT - COVID-19 pneumonia multifocal -Acute metabolic encephalopathy with delirium due to above -Essential hypertension -Hyperlipidemia -Primary osteoarthritis -Acute UTI from cystitis - Dementia - possibly senile dementia PLAN: Patient to be continued on hydroxychloroquine and Lovenox for DVT prophylaxis. Continue on Timentin for UTI. ID Dr. Castellano, pulmonary consultants following the patient. Blood cultures no growth. Overall prognosis is guarded. Further recommendations to follow depending on the progress of the patient. Time with Patient: Greater than 30
--- NOTE | 2019-07-30 14:14 | P.PN ---
Subjective Progress Note Date: 07/30/19 Principal diagnosis: Altered mental status, generalized weakness, shortness of breath related to COVID 19 pneumonitis This is a pleasant 79-year-old female patient who follows with Dr. Zamorano as her primary care provider. She has a history of colon cancer, hypertension, hyperlipidemia. Over the past several days the patient had been having increased confusion, nausea, vomiting, generalized weakness. She was initiated on a antibiotic recently for urinary tract infection which she has had in the past. Computed tomography scan of the brain revealed no acute intracranial hemorrhage or midline shift. There is moderate diffuse cerebral atrophy and chronic small vessel changes with old right frontal lobe infarct. Chest x-ray revealed chronic parenchymal changes and cardiomegaly with multifocal areas of acute infiltrate and atelectasis with the most prominent area involving the right upper to mid lung. White count 7.0. Hemoglobin 11.7. Lymphocytes 0.5. D-dimer 0.51. Sodium 133. Potassium 4.2. Bicarb 21. Creatinine 0.74. Glucose 121. Troponins negative 2. LDH 506. C-reactive protein 14.9. Urine culture positive for nitrates. Hernandez virus by PCR is detected. She is seen today in consultation on the regular medical floor. She is currently awake and alert. Somewhat restless in bed. She denies any shortness of breath, cough or congestion. She is maintaining O2 saturations in the mid 90s on room air. Currently afebrile. Slightly tachycardic. She has been initiated on Augmentin, Plaquenil, Lovenox. The patient is seen today 07/26/2019 in follow-up on the regular medical floor. She is awake and alert in no acute distress. Maintaining O2 saturations in the 90s on room air. She's afebrile. Hemodynamically stable. Blood culture reve als no growth to date. White count 8.4. Hemoglobin 12.2. D-dimer 0.39. Sodium 139. Potassium 4.1. Creatinine 0.87. LDH 512. C-reactive protein 8.5. She is continued on Augmentin, Plaquenil, Lovenox. Follow-up chest x-ray reveals PE, cardiomegaly and an opacity in the right upper lobe. The patient is seen today 07/27/2019 in follow-up on the regular medical floor. She is currently resting comfortably in bed. Awake and alert in no acute distress. She is maintaining good O2 saturation in the mid 90s on room air. She's afebrile. Hemodynamically stable. Blood cultures revealed no growth. White count 6.6. Hemoglobin 12.5. Lymphocytes 0.8. Creatinine 0.86. LDH 599. Creatinine kinase 375. C-reactive protein 5.1. D-dimer 0.37. The patient is seen today 07/28/2019 in follow-up on the regular medical floor. She is comfortably in bed. She is still has some altered mental status. Attempts to get out of bed on her own. A sitter is at the bedside. No shortness of breath cough or congestion. Maintaining O2 saturation in the mid 90s on room air. She's afebrile. Hemodynamically stable. Blood culture reveals no growth. White count 6.0. Hemoglobin 12.5. Lymphocytes 0.9. D-dimer 0.36. Sodium 137. Potassium 4.1. Creatinine 0.81. Glucose 100. LDH 544. Creatinine kinase 204. C-reactive protein 5.1. All trending down. She is received her fifth dose of 8 of the Plaquenil. She remains on Augmentin, Lovenox. The patient is seen today 07/29/2019 in follow-up on the regular medical floor. She is awake and alert. Still somewhat altered. A sitter is at the bedside. She continues to maintain good O2 saturations in the high 90s on room air. She's been afebrile. Hemodynamically stable. Currently on Augmentin. Remains on Levaquin at 55 mg subcutaneous every 12 hours. Received dose 7 of 8 of her Plaquenil. On 07/30/2019 patient seen in follow-up on general medical floor, she remains very confused, restless, she has a corporate safety manager at the bedside, does not appear to be in any acute distress and pulmonary perspective, no sign of any respiratory difficulty. He is on room air, her pulse ox is 96%, vital signs are stable, she is afebrile, he has completed her treatment with Plaquenil, steroids, and she remains on Lovenox at therapeutic doses. Vital signs stable, no acute events overnight, awaiting placement in the [facility] Objective - Vital Signs Vital signs: Vital Signs Temp 98.1 F 07/30/19 11:00 Pulse 98 05/13/20 11:00 Resp 16 07/30/19 11:00 BP 120/76 07/30/19 11:00 Pulse Ox 96 07/30/19 11:00 Intake & Output 07/29/19 07/30/19 07/30/19 18:59 06:59 18:59 Intake Total 200 200 180 Balance 200 200 180 Intake: Oral 200 200 180 Other: Voiding Method Toilet Toilet Toilet Diaper Diaper Diaper # Voids 3 3 # Bowel Movements 1 2 - Exam GENERAL EXAM: Alert, confused, pleasant 79-year-old female patient, on room air, comfortable in no apparent distress HEAD: Normocephalic. EYES: Normal reaction of pupils, equal size. NOSE: Clear with pink turbinates. THROAT: No erythema or exudates. NECK: No masses, no JVD. CHEST: No chest wall deformity. LUNGS: Equal air entry with bilateral scattered rhonchi. CVS: S1 and S2 normal with no audible murmur, regular rhythm. ABDOMEN: No hepatosplenomegaly, normal bowel sounds, no guarding or rigidity. SPINE: No scoliosis or deformity SKIN: No rashes CENTRAL NERVOUS SYSTEM: No focal deficits, tone is normal in all 4 extremities. EXTREMITIES: There is no peripheral edema. No clubbing, no cyanosis. Peripheral pulses are intact. - Labs CBC & Chem 7: 07/28/19 07:04 07/28/19 07:04 Labs: Microbiology - Last 24 Hours (Table) 07/24/19 22:50 Blood Culture - Preliminary Blood No Growth after 120 hours Assessment and Plan Plan: Assessment: Altered mental status, generalized weakness, shortness of breath secondary to CoVID 19 pneumonitis Acute urinary tract infection Hypertension Hyperlipidemia History of colon cancer Plan: Continue current medical treatment, maintain safety precautions, no acute events overnight, she is still very confused, corporate safety manager is at the bedside, no evidence of any respiratory distress, patient is on room air, she has completed treatment with Plaquenil, continues on antibiotics in the form of Augmentin, no fever or chills. She is awaiting placement in the extended care facility. From pulmonary/critical care perspective patient stable for transfer to [facility] once arrangements are complete. He may need repeat testing for Covid 19 for placement purposes we'll inquire with [facility]. Pulmonary service will sign off and follow on as-needed basis I performed a history & physical examination of the patient and discussed their management with my nurse practitioner, Raisa Webb. I reviewed the nurse practitioner's note and agree with the documented findings and plan of care. Lung sounds are positive for clear breath sounds. The findings and the impression was discussed with the patient. I attest to the documentation by the nurse practitioner. Time with Patient: Less than 30
--- NOTE | 2019-07-30 17:06 | PN ---
PROGRESS NOTE DATE OF SERVICE: 07/30/2019 REASON FOR FOLLOWUP: Acute COVID-19 pneumonia. INTERVAL HISTORY: The patient is currently afebrile. Patient remains to be pleasantly confused, no agitation. Sister at the bedside. She is breathing comfortably on room air. No significant change in clinical condition reported by the nursing staff. PHYSICAL EXAMINATION: Blood pressure 100/60 with a pulse 91, temperature 98.2, she is 96% on room air. General description is an elderly female, lying in bed in no distress. RESPIRATORY SYSTEM: Unlabored breathing, is clear to auscultation per the nursing staff. LABS: No new labs have been obtained today. DIAGNOSTIC IMPRESSION AND PLAN: Patient with acute COVID-19 pneumonia for which the patient completed her Plaquenil therapy. She is currently breathing comfortably on room air. Continue with Lovenox, Pepcid while inpatient. Waiting for placement, continue supportive care. MMODL / IJN: [id number] /
[2019-07-30] MEDS: QUEtiapine 25 MG TAB PO PRN (19:59)
[2019-07-31] MEDS: LACTATED RINGERS 1,000 ML IV SCH (04:19)
[2019-07-31 08:11] VITALS: BP 122/71; PULSE 104; RESP 18; TEMP 97.8
[2019-07-31] MEDS: FAMOTIDINE 20 MG TAB PO SCH (08:33)
[2019-07-31] MEDS: ATORVASTATIN 10 MG TAB PO SCH (08:33)
[2019-07-31] MEDS: AMOXIC-POT CLAV 500-125 MG 1 EACH TAB PO SCH (08:33)
[2019-07-31] MEDS: LABETALOL 100 MG TAB PO SCH (08:33)
[2019-07-31] MEDS: ENOXAPARIN 60 MG/0.6 ML SYRINGE SQ SCH (08:34)
[2019-07-31 09:38] VITALS: BMI 21.9
--- NOTE | 2019-07-31 10:28 | P.PN ---
Subjective Progress Note Date: 07/30/19 Principal diagnosis: COVID- 19 infection Ms. Brown is a 79-year-old female with past medical history of hypertension, hyperlipidemia coming in with a chief complaint of confusion, nausea, vomiting and generalized weakness. Patient was recently started on antibiotics for a U TI. She was also having fever at home along with slight headaches. Patient was tested positive for COVID - 19 in the ER and so admitted to the hospital for further management. Infectious disease and pulmonary consultants on board and following the patient. On 07/26/2019 - patient is sitting up in the bed appears to be in no acute distress. No acute events reported by nursing staff. As per discussion with nursing staff patient is confused at baseline, but since admission she is more confused than her usual. When I went to examine have this morning patient was not having her clothes on, she says that she usually sleeps naked in her bed. Patient is not able to provide me any history as she is confused and kept picking at the sheets in the bed. She is on fall precautions. On reviewing her vitals temperature 98.2, heart rate 76, respiratory rate 18 saturating at 96% on room air with blood pressure 112/72. Her labs from this morning showing a white count of 8.4 d-dimer 0.39. Troponin less than 0.0122 since admission. Urine is positive for nitrites. On 07/27/2019- no acute events reported by nursing staff overnight. Patient is sitting up on the chest the bed appears to be confused, as she has dementia at baseline. Review of systems could not be done as the patient is confused. On reviewing the patient's vitals she is saturating at 96% on room blood pressure 1 13 x 76, heart rate around 88, T-max over the past 24 hours 98. On reviewing the patient's labs hemoglobin is 12.5, white count of 6.6, d-dimer of 0.37, BUN/creatinine 21, creatinine 0.86, LDH 599, C-reactive protein at 5.1. On 07/28/2019 - overnight patient became very confused and she was trying to get out of the bed, so a safe sitter at the bedside arranged. Patient is comfortably lying in bed, she has been pulling had sheets. Review of systems could not be done and she is confused. As per discussion with nursing staff, this morning patient's granddaughter came to see her and mentioned that the patient has dementia at baseline, she thinks she is more confused than her usual. On reviewing the patient's vitals T-max over the past 24 hours 98.6, heart rate around 80s, respiratory rate 18, saturating 95% on room air. Patient's labs from this morning white count of 6, hemoglobin stable around 12.5, creatinine 0.81. LDH 544, CRP 5.1. D-dimer 0.36. 07/29/2019 Patient is currently awake alert and mentation at her baseline. Continuewith bedside sitter.otherwise saturating well on roommate. Patient has been afebrile. Currently on antibiotics and anticoagulation. Patient is also get ting hydroxychloroquine. Pulmonary is following. Family's trying to take at home with home physical therapy. Social work is following. 07/30/2019 Patient is currently confused but awake alert. Tolerating oral diet slowly. Continued on bedside sitter.. Saturating well onoxygen via nasal cannula. Patient completed treatment with black male, steroids. Continued on Lovenox at therapeutic dose. Patient has been afebrile. No complaints of chest pain shortness of breath. No nausea vomiting. Awaiting placement to ECF. Current medications reviewed. Objective - Vital Signs Vital signs: Vital Signs Temp 97.3 F L 07/30/19 19:25 Pulse 94 07/30/19 19:25 Resp 16 07/30/19 19:25 BP 118/82 07/30/19 19:25 Pulse Ox 96 07/30/19 19:25 Intake & Output 07/30/19 07/30/19 07/31/19 06:59 18:59 06:59 Intake Total 200 530 240 Balance 200 530 240 Intake: Oral 200 530 240 Other: Voiding Method Toilet Toilet Toilet Diaper Diaper Diaper # Voids 3 2 2 # Bowel Movements 2 - Exam GEN. APPEARANCE: elderly female in bed , no acute distress HEENT: no pallor. No icterus. Oral mucosa is moist. RESPIRATORY EXAM: normal lung sounds bilaterally. No wheezing, no crackles, no rhonchi CARDIOVASCULAR EXAM: S1-S2 heard. No additional sounds. GI/ABDOMINAL EXAM: soft, normal bowel sounds. Nondistended, nontender. No guarding or rigidity. EXTREMITIES EXAM: No pedal edema. NEUROLOGICAL EXAM: alert, oriented X1, confused. No focal deficits. - Labs CBC & Chem 7: 07/28/19 07:04 07/28/19 07:04 Labs: Microbiology - Last 24 Hours (Table) 07/24/19 22:50 Blood Culture - Preliminary Blood No Growth after 120 hours Assessment and Plan Assessment: ASSESSMENT - COVID-19 pneumonia multifocal -Acute metabolic encephalopathy with delirium due to above -Essential hypertension -Hyperlipidemia -Primary osteoarthritis -Acute UTI from cystitis - Dementia - possibly senile dementia PLAN: Patient completed course of hydroxychloroquine and continue with Lovenox for DVT prophylaxis. Continue on Timentin for UTI. ID Dr. Castellano, pulmonary consultants following the patient. Blood cultures no growth. Overall prognosis is guarded. Further recommendations to follow depending on the progress of the patient.awaiting placement. Time with Patient: Greater than 30
--- NOTE | 2019-07-31 15:24 | PN ---
PROGRESS NOTE DATE OF SERVICE: 07/31/2019 REASON FOR FOLLOWUP: Acute COVID-19 pneumonia. INTERVAL HISTORY: The patient is currently afebrile. The patient remains pleasantly confused agitated. Denies having any chest pain or shortness of breath or cough. No vomiting or any diarrhea reported. PHYSICAL EXAMINATION: Blood pressure 122/71 with a pulse of 104, temperature 97.8. She is 96% on room air. General description is an elderly female up in the bed in no distress. RESPIRATORY SYSTEM: Unlabored breathing. Clear to auscultation per the nursing staff. LOWER EXTREMITIES: No swelling noted. LABS: No new labs have been obtained today. DIAGNOSTIC IMPRESSION AND PLAN: Patient with acute COVID-19 pneumonia that has been adequately treated. She has completed her Plaquenil therapy. Currently afebrile, on room air. No need for any antibiotic on discharge. Continue with supportive care. MMODL / IJN: [id number] /
--- NOTE | 2019-07-31 22:13 | P.DS ---
Providers Date of admission: 07/24/19 23:38 Expected date of discharge: 07/31/19 Attending physician: Constantin Marks Consults: 07/24/19 23:39 Consult Physician Routine Consulting Provider: Jeniffer Castellano Consult Reason/Comments: covid Do you want consulting provider notified?: Yes 07/25/19 09:50 Consult Physician Routine Consulting Provider: Jerome James Consult Reason/Comments: covid Do you want consulting provider notified?: Yes Primary care physician: Gerard Hernandez [facility] Course: Chief Complaint: Weakness History of presenting complaint: This is a 79-year-old patient of Dr. Gerard Zamorano. Presented zoster through the ER. Patient presented to family members. Patient the evening and started feeling rather ill. The last 2 days she was having somewhat confusion nausea vomiting generalized weakness. He was recently started antibiotics for a UTI. She has been feeling feverish. Slight headache. Patient tested positive for COVID in the ER. Patient is put on plaque on her. Subcu Lovenox. ID and pulmonary were consulted. Admitted [id number] pneumonia multifocal, acute metabolic encephalopathy with delirium and acute UTI and cystitis. Patient is treated with Augmentin, Plaquenil Lovenox. Today-tolerating some diet. May answer questions occasionally. Prognosis guarded. Patient to return home with her son. Discussed with nurse. Discussion and discharge planning more than 35 minutes Consultation: Dr. Castellano from ID Dr. Dr. May from pulmonary Physical examination: VITAL SIGNS: 97.8, 104, 18, 122/71, 96% on room air GENERAL: Sitting upon a chair,. EYES: Pupils equal. Conjunctiva normal. HEENT: External appearance of nose and ears normal, oral cavity grossly normal. NECK: JVD not raised; masses not palpable. HEART: First and second heart sounds are normal; no edema. LUNGS: Respiratory rate increased; decreased breath sounds. ABDOMEN: Soft, nontender, liver spleen not palpable, no masses palpable. PSYCH: Answers occasional questions MUSCULOSKELETAL: Evidence of OA in multiple joints INVESTIGATIONS, reviewed in the clinical context: White count 6 hemoglobin 12.5 potassium 4.1 creatinine 0.81 Previous testing White count 7 hemoglobin 11.7 platelets 283 lymphocytes decreased at 0.5 potassium 4.2 creatinine 0.74 d-dimer 0.51 CRP 40.9 UA positive for nitrite COVID-19 PCR-detected EKG tracing personally reviewed by me-normal sinus rhythm Chest x-ray film personally reviewed by me-multiple infiltrates Assessment: -COVID-19 pneumonia multifocal, POA -Acute metabolic encephalopathy with delirium due to above, POA -Essential hypertension -Hyperlipidemia -Primary osteoarthritis -Acute UTI from cystitis Disposition: Home with some Patient Condition at Discharge: Undetermined Plan - Discharge Summary New Discharge Prescriptions: New QUEtiapine [SEROquel] 25 mg PO HS PRN #30 tab PRN Reason: Insomnia Continue HYDROcodone/APAP 5-325MG [[place] 5-325] 1 tab PO Q6H PRN PRN Reason: Pain Atorvastatin [Lipitor] 10 mg PO DAILY Labetalol HCl 100 mg PO BID Discontinued hydrOXYzine HCL 25 mg PO Q6H PRN PRN Reason: Anxiety Amoxic-Pot Clav 500-125 mg [Augmentin 500-125 mg] 1 tab PO Q12HR Discharge Medication List Atorvastatin [Lipitor] 10 mg PO DAILY 07/25/19 [History] HYDROcodone/APAP 5-325MG [[place] 5-325] 1 tab PO Q6H PRN 07/25/19 [History] Labetalol HCl 100 mg PO BID 07/25/19 [History] QUEtiapine [SEROquel] 25 mg PO HS PRN #30 tab 07/31/19 [Rx] Follow up Appointment(s)/Referral(s): [facility], [NON-STAFF] - As Needed Gerard Hernandez DO [Primary Care Provider] - 08/07/19 2:30 pm (Appointment will be via phone. Please call office with any questions prior to TeleHealth appointment. Thank you.)
== END 2019-07-31 15:55 | disposition home or self-care (01) | DRG 177 ==
LOC: EC 22:24 → 4SSUR 23:38
PROVIDERS: ADMIT Hospitalist; ATTEND Hospitalist
DX: U07.1 COVID-19 (principal); G93.41 Metabolic encephalopathy; J12.89 Other viral pneumonia; E87.2 Acidosis; J98.11 Atelectasis; E78.5 Hyperlipidemia, unspecified; F03.90 Unspecified dementia, unspecified severity, without behavioral disturbance, psychotic disturbance, mood disturbance, and anxiety; I11.9 Hypertensive heart disease without heart failure; M19.91 Primary osteoarthritis, unspecified site; N30.90 Cystitis, unspecified without hematuria; Z79.01 Long term (current) use of anticoagulants; Z79.899 Other long term (current) drug therapy; Z85.038 Personal history of other malignant neoplasm of large intestine; Z86.73 Personal history of transient ischemic attack (TIA), and cerebral infarction without residual deficits; Z96.649 Presence of unspecified artificial hip joint; D72.810 Lymphocytopenia
CPT/HCPCS: 36415; 70450; 71045; 80053; 81001; 82550; 83605; 83615; 83735; 84484; 85025; 85379; 85610; 85730; 86140; 87040; 87635; 93005; 96372; 96374; 96375; 99285

== ENCOUNTER 2020-08-16 11:49 | Observation (INO) | payer MEDICARE, OTHER ==
--- NOTE | 2020-08-16 12:52 | ED ---
General Adult HPI - General Chief complaint: Neuro Symptoms/Deficit Stated complaint: Weakness Time Seen by Provider: 08/16/20 12:05 Source: family, RN notes reviewed Mode of arrival: ambulatory Limitations: no limitations - History of Present Illness Initial comments: Patient is a pleasant 80-year-old female with advanced dementia presenting to the emergency Department with inability to walk. Last known well was 10:30 last night when patient went to bed. Patient woke up this morning and unable to it up straight or get out of bed. Patient does have history of somewhat similar symptoms previously associated with urinary tract infections. Patient is on chronic nitrofurantoin for this. Patient is a very poor historian and offers very little information. Patient appears drowsy however family states this is normal. Patient is only oriented to self and again patient family states that is normal. Patient has been reportedly dragging her right leg over the past couple of months. Patient has been more emotional today. - Related Data Home Medications Medication Instructions Recorded Confirmed Atorvastatin [Lipitor] 10 mg PO HS 07/25/19 08/16/20 HYDROcodone/APAP 5-325MG [[place] 1 tab PO HS 07/25/19 08/16/20 5-325] Labetalol HCl 100 mg PO BID 07/25/19 08/16/20 Aspirin EC [Ecotrin Low Dose] 81 mg PO DAILY 08/16/20 08/16/20 HYDROcodone/APAP 5-325MG [[place] 1 tab PO DAILY PRN 08/16/20 08/16/20 5-325] Methenamine Hippurate 1 gm PO DAILY 08/16/20 08/16/20 Nitrofurantoin Monohyd/M-Cryst 100 mg PO Q12HR 08/16/20 08/16/20 [Macrobid] Pantoprazole Sodium [Protonix] 40 mg PO DAILY 08/16/20 08/16/20 traZODone HCL 75 mg PO HS 08/16/20 08/16/20 Allergies Allergy/AdvReac Type Severity Reaction Status Date / Time acetaminophen [From Tylenol] Allergy Swelling Verified 08/16/20 13:04 Review of Systems ROS Statement: Those systems with pertinent positive or pertinent negative responses have been documented in the HPI. ROS Other: All systems not noted in ROS Statement are negative. Constitutional: Denies: fever Eyes: Denies: eye pain ENT: Denies: ear pain Respiratory: Denies: dyspnea Cardiovascular: Denies: chest pain Gastrointestinal: Denies: vomiting Genitourinary: Denies: hematuria Musculoskeletal: Denies: back pain Skin: Denies: rash Neurological: Reports: as per HPI Past Medical History Past Medical History: Cancer, Dementia, Hyperlipidemia, Hypertension Additional Past Medical History / Comment(s): colon cancer History of Any Multi-Drug Resistant Organisms: None Reported Past Surgical History: Orthopedic Surgery Additional Past Surgical History / Comment(s): hip replacment. Past Psychological History: No Psychological Hx Reported Smoking Status: Never smoker Past Alcohol Use History: None Reported Past Drug Use History: None Reported - Past Family History Father Additional Family Medical History / Comment(s): pt unable to give history General Exam Limitations: no limitations General appearance: alert, in no apparent distress Head exam: Present: normocephalic Eye exam: Present: normal appearance, PERRL, EOMI. Absent: conjunctival injection, nystagmus ENT exam: Present: normal oropharynx Neck exam: Present: normal inspection Respiratory exam: Present: normal lung sounds bilaterally Cardiovascular Exam: Present: regular rate, normal rhythm GI/Abdominal exam: Present: soft. Absent: tenderness Extremities exam: Present: normal inspection Neurological exam: Present: alert, altered, CN II-XII intact Expanded Neurological exam: Present: protecting the airway Patient oriented to: Present: person. Absent: place, time Cranial nerves: EOM's Intact: Normal, Facial Sensation: Normal Sensory exam: Upper Extremity Light Touch: Normal, Lower Extremity Light Touch: Normal Motor strength exam: RUE: 5, LUE: 5, RLE: 4, LLE: 4 Eye Response: (4) open spontaneously Motor Response: (6) obeys commands Verbal Response: (4) confused conversation Psychiatric exam: Present: normal affect, normal mood Skin exam: Present: normal color Course Vital Signs 08/16/20 11:57 Temperature 99.1 F Pulse Rate 86 Respiratory 18 Rate Blood Pressure 120/84 O2 Sat by Pulse 96 Oximetry - Reevaluation(s) Reevaluation #1: 08/16/20 13:07 Patient is not a TPA candidate secondary to onset of symptoms more than 4.5 hours. EKG Findings - EKG Comments: EKG Findings:: Normal sinus rhythm with a rate of 83. AL 202, for screening AV block. QRS 92. QT 380. QTC 446 left axis. LVH criteria. No acute ST change. Medical Decision Making - Medical Decision Making Patient reevaluated. Patient and family updated on results and plan. Case was discussed in detail with Dr. Dallas, covering for Dr. Renteria, who will admit. - Lab Data Result diagrams: 08/16/20 12:51 08/16/20 12:51 Lab Results 08/16/20 08/16/20 08/16/20 Range/Units 12:51 12:51 12:51 WBC 6.5 (3.8-10.6) k/uL RBC 4.05 (3.80-5.40) m/uL Hgb 13.3 (11.4-16.0) gm/dL Hct 39.0 (34.0-46.0) % MCV 96.2 (80.0-100.0) fL MCH 32.8 (25.0-35.0) pg MCHC 34.1 (31.0-37.0) g/dL RDW 12.7 (11.5-15.5) % Plt Count 223 (150-450) k/uL MPV 7.1 Neutrophils % 73 % Lymphocytes % 13 % Monocytes % 8 % Eosinophils % 3 % Basophils % 0 % Neutrophils # 4.7 (1.3-7.7) k/uL Lymphocytes # 0.9 L (1.0-4.8) k/uL Monocytes # 0.5 (0-1.0) k/uL Eosinophils # 0.2 (0-0.7) k/uL Basophils # 0.0 (0-0.2) k/uL PT 9.9 (9.0-12.0) sec INR 0.9 (<1.2) APTT 22.5 (22.0-30.0) sec Sodium (137-145) mmol/L Potassium (3.5-5.1) mmol/L Chloride (98-107) mmol/L Carbon Dioxide (22-30) mmol/L Anion Gap mmol/L BUN (7-17) mg/dL Creatinine (0.52-1.04) mg/dL Est GFR (CKD-EPI)AfAm (>60 ml/min/1.73 sqM) Est GFR (CKD-EPI)NonAf (>60 ml/min/1.73 sqM) Glucose (74-99) mg/dL Calcium (8.4-10.2) mg/dL Total Bilirubin (0.2-1.3) mg/dL AST (14-36) U/L ALT (4-34) U/L Alkaline Phosphatase (38-126) U/L Troponin I (0.000-0.034) ng/mL NT-Pro-B Natriuret Pep pg/mL Total Protein (6.3-8.2) g/dL Albumin (3.5-5.0) g/dL Urine Color Yellow Urine Appearance Cloudy H (Clear) Urine pH 6.5 (5.0-8.0) Ur Specific [place] 1.021 (1.001-1.035) Urine Protein Trace H (Negative) Urine Glucose (UA) Negative (Negative) Urine Ketones Negative (Negative) Urine Blood Negative (Negative) Urine Nitrite Negative (Negative) Urine Bilirubin Negative (Negative) Urine Urobilinogen <2.0 (<2.0) mg/dL Ur Leukocyte Esterase Large H (Negative) Urine RBC 3 (0-5) /hpf Urine WBC 110 H (0-5) /hpf Ur Squamous Epith Cells 3 (0-4) /hpf Urine Bacteria Many H (None) /hpf Urine Mucus Rare H (None) /hpf Coronavirus (PCR) (Not Detectd) 08/16/20 08/16/20 08/16/20 Range/Units 12:51 12:51 12:51 WBC (3.8-10.6) k/uL RBC (3.80-5.40) m/uL Hgb (11.4-16.0) gm/dL Hct (34.0-46.0) % MCV (80.0-100.0) fL MCH (25.0-35.0) pg MCHC (31.0-37.0) g/dL RDW (11.5-15.5) % Plt Count (150-450) k/uL MPV Neutrophils % % Lymphocytes % % Monocytes % % Eosinophils % % Basophils % % Neutrophils # (1.3-7.7) k/uL Lymphocytes # (1.0-4.8) k/uL Monocytes # (0-1.0) k/uL Eosinophils # (0-0.7) k/uL Basophils # (0-0.2) k/uL PT (9.0-12.0) sec INR (<1.2) APTT (22.0-30.0) sec Sodium 139 (137-145) mmol/L Potassium 4.7 (3.5-5.1) mmol/L Chloride 105 (98-107) mmol/L Carbon Dioxide 26 (22-30) mmol/L Anion Gap 8 mmol/L BUN 23 H (7-17) mg/dL Creatinine 1.00 (0.52-1.04) mg/dL Est GFR (CKD-EPI)AfAm 62 (>60 ml/min/1.73 sqM) Est GFR (CKD-EPI)NonAf 53 (>60 ml/min/1.73 sqM) Glucose 104 H (74-99) mg/dL Calcium 9.9 (8.4-10.2) mg/dL Total Bilirubin 0.5 (0.2-1.3) mg/dL AST 31 (14-36) U/L ALT 21 (4-34) U/L Alkaline Phosphatase 78 (38-126) U/L Troponin I <0.012 (0.000-0.034) ng/mL NT-Pro-B Natriuret Pep pg/mL Total Protein 7.1 (6.3-8.2) g/dL Albumin 4.2 (3.5-5.0) g/dL Urine Color Urine Appearance (Clear) Urine pH (5.0-8.0) Ur Specific [place] (1.001-1.035) Urine Protein (Negative) Urine Glucose (UA) (Negative) Urine Ketones (Negative) Urine Blood (Negative) Urine Nitrite (Negative) Urine Bilirubin (Negative) Urine Urobilinogen (<2.0) mg/dL Ur Leukocyte Esterase (Negative) Urine RBC (0-5) /hpf Urine WBC (0-5) /hpf Ur Squamous Epith Cells (0-4) /hpf Urine Bacteria (None) /hpf Urine Mucus (None) /hpf Coronavirus (PCR) Not Detected (Not Detectd) 08/16/20 Range/Units 14:08 WBC (3.8-10.6) k/uL RBC (3.80-5.40) m/uL Hgb (11.4-16.0) gm/dL Hct (34.0-46.0) % MCV (80.0-100.0) fL MCH (25.0-35.0) pg MCHC (31.0-37.0) g/dL RDW (11.5-15.5) % Plt Count (150-450) k/uL MPV Neutrophils % % Lymphocytes % % Monocytes % % Eosinophils % % Basophils % % Neutrophils # (1.3-7.7) k/uL Lymphocytes # (1.0-4.8) k/uL Monocytes # (0-1.0) k/uL Eosinophils # (0-0.7) k/uL Basophils # (0-0.2) k/uL PT (9.0-12.0) sec INR (<1.2) APTT (22.0-30.0) sec Sodium (137-145) mmol/L Potassium (3.5-5.1) mmol/L Chloride (98-107) mmol/L Carbon Dioxide (22-30) mmol/L Anion Gap mmol/L BUN (7-17) mg/dL Creatinine (0.52-1.04) mg/dL Est GFR (CKD-EPI)AfAm (>60 ml/min/1.73 sqM) Est GFR (CKD-EPI)NonAf (>60 ml/min/1.73 sqM) Glucose (74-99) mg/dL Calcium (8.4-10.2) mg/dL Total Bilirubin (0.2-1.3) mg/dL AST (14-36) U/L ALT (4-34) U/L Alkaline Phosphatase (38-126) U/L Troponin I (0.000-0.034) ng/mL NT-Pro-B Natriuret Pep 163 pg/mL Total Protein (6.3-8.2) g/dL Albumin (3.5-5.0) g/dL Urine Color Urine Appearance (Clear) Urine pH (5.0-8.0) Ur Specific [place] (1.001-1.035) Urine Protein (Negative) Urine Glucose (UA) (Negative) Urine Ketones (Negative) Urine Blood (Negative) Urine Nitrite (Negative) Urine Bilirubin (Negative) Urine Urobilinogen (<2.0) mg/dL Ur Leukocyte Esterase (Negative) Urine RBC (0-5) /hpf Urine WBC (0-5) /hpf Ur Squamous Epith Cells (0-4) /hpf Urine Bacteria (None) /hpf Urine Mucus (None) /hpf Coronavirus (PCR) (Not Detectd) - Radiology Data Radiology results: report reviewed (Computed tomography scan of the brain shows atrophy and chronic small vessel ischemic changes.), image reviewed (Chest x-ray does have increased interstitial markings.) Disposition Clinical Impression: UTI (urinary tract infection), Ataxia Disposition: ADMITTED IP TO THIS HOSP Is patient prescribed a controlled substance at d/c from ED?: No Referrals: Lc Apple MD [Primary Care Provider] - 1-2 days Decision Time: 15:13
[2020-08-16 12:59] LABS: Basophils % (A) 0 %; Eosinophils # (A) 0.2 k/uL (0-0.7); Eosinophils % (A) 3 %; HGB 13.3 gm/dL (11.4-16.0); Lymphocytes # (A) 0.9 k/uL (1.0-4.8); Lymphocytes % (A) 13 %; MCH 32.8 pg (25.0-35.0); MCHC 34.1 g/dL (31.0-37.0); MCV 96.2 fL (80.0-100.0); Mean Platelet Volume 7.1; Monocytes # (A) 0.5 k/uL (0-1.0); Monocytes % (A) 8 %; Neutrophils # (A) 4.7 k/uL (1.3-7.7); Neutrophils % (A) 73 %; Platelet Count 223 k/uL (150-450); RBC 4.05 m/uL (3.80-5.40); RDW 12.7 % (11.5-15.5); WBC 6.5 k/uL (3.8-10.6)
[2020-08-16 13:08] LABS: Albumin 4.2 g/dL (3.5-5.0); Calcium 9.9 mg/dL (8.4-10.2); Potassium 4.7 mmol/L (3.5-5.1); Total Bilirubin 0.5 mg/dL (0.2-1.3); Total Protein 7.1 g/dL (6.3-8.2)
[2020-08-16 13:15] LABS: INR 0.9 (<1.2); Partial Thromboplastin Time 22.5 sec (22.0-30.0); Prothrombin Time 9.9 sec (9.0-12.0)
--- NOTE | 2020-08-16 13:30 | CT ---
EXAMINATION TYPE: CT brain wo con for TPA DATE OF EXAM: 08/16/2020 COMPARISON: CT 07/24/2019 HISTORY: Weakness, neuro deficits, acute CT DLP: 1533.7 mGycm Automated exposure control for dose reduction was used. Helical acquisition through the brain. FINDINGS: Periventricular white matter shows patchy low attenuation similar to prior exam, right frontal enceph alomalacia shows a similar appearance. There are cerebral vascular calcifications. There is no hemorr amna or hydrocephalus. Calvarium is intact. Paranasal sinuses and mastoid air cells as visualized are normal. Prominence of the ventricles shows a stable appearance. IMPRESSION: STABLE AGE-RELATED ATROPHY AND CHRONIC SMALL VESSEL ISCHEMIC CHANGES.
--- NOTE | 2020-08-16 13:34 | XR ---
EXAMINATION TYPE: XR chest 2V DATE OF EXAM: 08/16/2020 COMPARISON: Chest x-ray 07/26/2019 HISTORY: Altered mental status TECHNIQUE: Frontal and lateral views of the chest are obtained. FINDINGS: Abnormal attenuation present within the upper lobes, heart is enlarged. Interstitium likel y increased. No evident pneumothorax or pleural effusion. Patient is rotated. Thoracic spondylosis is present. Aorta is dense. IMPRESSION: Correlate to exclude congestive heart failure, pneumonia
[2020-08-16 14:13] LABS: Appearance,Urine Cloudy (Clear); Bacteria,Urine Many /hpf; Bilirubin,Urine Negative (Negative); Blood,Urine Negative (Negative); Color,Urine Yellow; Glucose,Urine (UA) Negative (Negative); Ketones,Urine Negative (Negative); Leukocyte Esterase,Urine Large (Negative); Mucus,Urine Rare /hpf; Nitrite,Urine Negative (Negative); PH, Urine 6.5 (5.0-8.0); Protein,Urine Trace (Negative); RBC,Urine 3 /hpf (0-5); Specific Gravity,Urine 1.021 (1.001-1.035); Squamous Epithelial Cell,Urine 3 /hpf (0-4); Urobilinogen,Urine <2.0 mg/dL (<2.0); WBC,Urine 110 /hpf (0-5)
[2020-08-16] MEDS ORDERED: ASPIRIN 325 MG TAB PO STA (15:14)
--- NOTE | 2020-08-16 16:15 | P.HPIM ---
History of Present Illness H&P Date: 08/16/20 Chief Complaint: Ataxia Patient is a 80-year-old female with a past medical history of advanced dementia, COVID-19 pneumonia, frequent UTIs, hypertension, hyperlipidemia, colon cancer, arthritis and remote history of hemorrhagic stroke who presents to the ED with ataxia that has been worsening over the past 2 weeks and also patient being more impulsive that started today. Patient is a poor historian secondary to advanced dementia so history was obtained from family at bedside. They state that normally patient is able to walk to the bathroom with minimal assistance. They state that now patient is unable to get out of bed. They state that patient has been leaning more to her right side. They have also noticed that patient does not lift her right foot when she walks. Family also states that patient has been complaining of pain in her suprapubic area. They also noticed that her urine was cloudy. Patient sees a urologist who started her on nitrofur antoin and methamphetamine earlier this month. In the ED patient had a CT head that showed age-related atrophy and chronic small vessel ischemic changes. Patient's urine showed large leukocyte esterase and 110 WBCs and many bacteria. The remainder of her labs were unremarkable Review of Systems 10 ROS reviewed and are negative except as noted in HPI. Of note patient is a poor historian secondary to advanced dementia Past Medical History Past Medical History: Cancer, Dementia, Hyperlipidemia, Hypertension Additional Past Medical History / Comment(s): colon cancer History of Any Multi-Drug Resistant Organisms: None Reported Past Surgical History: Orthopedic Surgery Additional Past Surgical History / Comment(s): hip replacment. Past Psychological History: No Psychological Hx Reported Smoking Status: Never smoker Past Alcohol Use History: None Reported Past Drug Use History: None Reported - Past Family History Father Additional Family Medical History / Comment(s): pt unable to give history Medications and Allergies Home Medications Medication Instructions Recorded Confirmed Type Atorvastatin [Lipitor] 10 mg PO HS 07/25/19 08/16/20 History HYDROcodone/APAP 5-325MG [[place] 1 tab PO HS 07/25/19 08/16/20 History 5-325] Labetalol HCl 100 mg PO BID 07/25/19 08/16/20 History Aspirin EC [Ecotrin Low Dose] 81 mg PO DAILY 08/16/20 08/16/20 History HYDROcodone/APAP 5-325MG [[place] 1 tab PO DAILY PRN 08/16/20 08/16/20 History 5-325] Methenamine Hippurate 1 gm PO DAILY 08/16/20 08/16/20 History Nitrofurantoin Monohyd/M-Cryst 100 mg PO Q12HR 08/16/20 08/16/20 History [Macrobid] Pantoprazole Sodium [Protonix] 40 mg PO DAILY 08/16/20 08/16/20 History traZODone HCL 75 mg PO HS 08/16/20 08/16/20 History Allergies Allergy/AdvReac Type Severity Reaction Status Date / Time acetaminophen [From Tylenol] Allergy Swelling Verified 08/16/20 13:04 Physical Exam Osteopathic Statement: *. No significant issues noted on an osteopathic structural exam other than those noted in the History and Physical/Consult. Vitals: Vital Signs Temp Pulse Resp BP Pulse Ox 08/16/20 15:17 94 18 141/89 98 08/16/20 11:57 99.1 F 86 18 120/84 96 Intake and Output 08/16/20 08/16/20 08/16/20 06:59 14:59 22:59 Other: Weight 58.967 kg General: [Alert and oriented, well nourished, no acute distress]. Eye: [PERRL, EOMI, normal conjunctiva]. HENT: [Normocephalic, clear tympanic membranes, normal hearing, moist oral mucosa, no scleral icterus, no sinus tenderness]. Neck: [Supple, non-tender, no carotid bruits, no JVD, no lymphadenopathy]. Lungs: [Clear to auscultation and percussion, non-labored respiration]. Heart: [Normal rate, regular rhythm, no murmur, gallop or edema]. Abdomen: [Soft, non-tender, non-distended, normal bowel sounds, no masses]. Musculoskeletal: [Normal range of motion and strength, no tenderness or swelling]. Skin: [Skin is warm, dry and pink, no rashes or lesions]. Neurologic: [Awake, alert, and oriented X1 (name only), CN II-XII intact]. Psychiatric: [Pleasantly demented]. Results CBC & Chem 7: 08/16/20 12:51 08/16/20 12:51 Labs: Abnormal Lab Results - Last 24 Hours (Table) 08/16/20 08/16/20 08/16/20 Range/Units 12:51 12:51 12:51 Lymphocytes # 0.9 L (1.0-4.8) k/uL BUN 23 H (7-17) mg/dL Glucose 104 H (74-99) mg/dL Urine Appearance Cloudy H (Clear) Urine Protein Trace H (Negative) Ur Leukocyte Esterase Large H (Negative) Urine WBC 110 H (0-5) /hpf Urine Bacteria Many H (None) /hpf Urine Mucus Rare H (None) /hpf Assessment and Plan Assessment: #Ataxia likely due to generalized weakness from UTI versus TIA -CT head negative for acute bleed -Resume aspirin and statin. If LDL is greater than 70 then will increase Lipitor to 40 mg. -Check echocardiogram with Doppler study -No focal deficits appreciated on physical exam -PT OT consult -Neurology consult #Toxic encephalopathy secondary to acute on chronic UTI with underlying dementia #Acute on chronic UTI (does not meet sepsis criteria) -Resume ceftriaxone. (Hold home dose of nitrofurantoin and methamphetamine until she completes her antibiotic course) -Follow up urine culture #Abnormal chest x-ray which shows abnormal attenuation in the upper lobes and increased interstitium likely due to history of COVID-19 pneumonia -Patient currently is in no respiratory distress and is satting well on room air. -Patient can follow up outpatient with PCP for follow-up imaging studies. #Advanced dementia -Family states that patient has a poor baseline and is normally confused #Hypertension -Resume labetalol #Hyperlipidemia -Resume statin #History of hemorrhagic stroke -Stable CT head *I discussed CODE STATUS with the son at bedside. He states that his other brot her is also DPOA and he will need to discuss CODE STATUS with him. For now patient will be full code. CODE STATUS:full code DVT prophylaxis: SC heparin Discussed with: Patient, ER, rn Anticipated length of stay > than [address]: home with home care vs SNF A total of 75 minutes was spent on the care of this complex patient more than 50% of the time was spent in counseling and care coordination.
[2020-08-16] MEDS: SODIUM CHLORIDE 0.9% 1,000 ML IV SCH (16:30)
--- NOTE | 2020-08-16 19:02 | CT ---
EXAMINATION TYPE: CT angio head neck DATE OF EXAM: 08/16/2020 HISTORY: Altered mental status. COMPARISON: None CT DLP: 436.9 mGycm. Automated Exposure Control for Dose Reduction was Utilized. TECHNIQUE: CTA scan of the neck is performed with IV Contrast, patient injected with 65ml mL of Isov ue 370, axial images are obtained, coronal and sagittal reformatted images are reviewed. Three-D michael nstructed images are created on an independent workstation and reviewed. Technologist notes patient u nable to follow directions during scan. FINDINGS: Exam is significantly degraded by motion artifact. The CTA images of the head are nondiagnostic. Ther e is likely a bovine aortic arch. Due to motion artifact the carotid arteries cannot be evaluated for dissection. The carotid arteries are seen to the level of C2-C3. There is calcified atherosclerotic disease of the bilateral carotid bulbs. The vertebral arteries are somewhat visualized to the skull b ase and opacify with contrast. Degenerative changes of the cervical spine. IMPRESSION: 1. Significant motion degradation. The CTA images of the head are nondiagnostic. 2. Limited visualization of the carotid arteries and vertebral arteries. There is calcified atheroscl erotic disease of the bilateral carotid bulbs. 3. Recommend repeat CTA of the head and neck or carotid ultrasound for further characterization as cl inically indicated, once patient is able to cooperate with examination.
[2020-08-16] MEDS ORDERED: HYDROcodone/APAP 5-325MG 1 EACH TAB PO STA (20:42)
[2020-08-16] MEDS: ATORVASTATIN 10 MG TAB PO SCH (21:04)
[2020-08-16] MEDS: HEPARIN SODIUM,PORCINE/PF 5,000 UNIT/0.5 ML SYRINGE SQ SCH (21:04)
[2020-08-16] MEDS: traZODone HCL 50 MG TAB PO SCH (21:04)
[2020-08-16] MEDS: LABETALOL 100 MG TAB PO SCH (22:45)
[2020-08-17] MEDS: LABETALOL 100 MG TAB PO SCH ×2 (08:05→21:20)
[2020-08-17] MEDS: PANTOPRAZOLE 40 MG TABLET PO SCH (08:05)
[2020-08-17] MEDS: HEPARIN SODIUM,PORCINE/PF 5,000 UNIT/0.5 ML SYRINGE SQ SCH ×2 (08:05→21:21)
[2020-08-17 10:45] LABS: Chol/HDL Ratio 2.89; LDL Cholesterol,Calculated 68.8 mg/dL (0.0-131.0); VLDL Calculation 18.2 mg/dL (5.00-40.00)
[2020-08-17] MEDS ORDERED: ALPRAZolam 0.25 MG TAB PO PRN (11:35)
[2020-08-17] MEDS: HYDROcodone/APAP 5-325MG 1 EACH TAB PO PRN ×2 (13:04→21:19)
--- NOTE | 2020-08-17 14:24 | P.PN ---
Subjective Progress Note Date: 08/17/20 Principal diagnosis: CC: ataxia When I walked in the room physical therapy had worked with her. Per physical therapy patient has an unsteady gait and was anxious. Patient is a poor historian secondary to advanced dementia. Patient states that she wants to go home. She is AAO 2 this morning (name and place only). Patient had CTA head and neck done yesterday that was not helpful due to significant motion artifact. Objective - Vital Signs Vital signs: Vital Signs Temp 98.9 F 08/17/20 08:50 Pulse 97 08/17/20 08:50 Resp 21 08/17/20 08:50 BP 162/97 08/17/20 08:50 Pulse Ox 95 08/17/20 08:50 Intake & Output 08/16/20 08/17/20 08/17/20 18:59 06:59 18:59 Weight 58.967 kg - Exam General examination - Alert and Oriented 2 (name and place only), elderly frail lady Heart - + S1S2 no murmurs Lungs - Clear to auscultation Abdomen soft NT ND +ve BS Extremities - No edema OIL OPERATOR - Moving all 4 extremities spontaneously, no focal deficits Psych - anxious and pleasantly demented - Labs CBC & Chem 7: 08/16/20 12:51 08/16/20 12:51 Labs: Abnormal Lab Results - Last 24 Hours (Table) 08/16/20 08/16/20 08/16/20 Range/Units 12:51 12:51 12:51 Lymphocytes # 0.9 L (1.0-4.8) k/uL BUN 23 H (7-17) mg/dL Glucose 104 H (74-99) mg/dL Urine Appearance Cloudy H (Clear) Urine Protein Trace H (Negative) Ur Leukocyte Esterase Large H (Negative) Urine WBC 110 H (0-5) /hpf Urine Bacteria Many H (None) /hpf Urine Mucus Rare H (None) /hpf Microbiology - Last 24 Hours (Table) 08/16/20 12:51 Urine Culture - Preliminary Urine,Catheterized Assessment and Plan Assessment: #Ataxia likely due to generalized weakness from UTI versus TIA -CT head negative for acute bleed -CTA head and neck was not diagnostic due to significant motion artifact -Resume aspirin and statin. LDL is 68 -Check electrocardiogram with Doppler study -No focal deficits appreciated on physical exam -PT OT consult -> recommends SNF -Neurology consult #Toxic encephalopathy secondary to acute on chronic UTI with underlying dementia #Acute on chronic UTI (does not meet sepsis criteria) -Resume ceftriaxone. (Hold home dose of nitrofurantoin and methamphetamine started by her urologist until she completes her antibiotic course) -Follow up urine culture #Abnormal chest x-ray which shows abnormal attenuation in the upper lobes and increased interstitium likely due to history of COVID-19 pneumonia -Patient currently is in no respiratory distress and is satting well on room air. -Patient can follow up outpatient with PCP for follow-up imaging studies. #Advanced dementia -Family states that patient has a poor baseline and is normally confused #Hypertension -Resume labetalol #Hyperlipidemia -Resume statin #History of hemorrhagic stroke -Stable CT head *I discussed CODE STATUS with the son at bedside. He states that his other brother is also DPOA and he will need to discuss CODE STATUS with him. For now patient will be full code. CODE STATUS:full code DVT prophylaxis: SC heparin Anticipated length of stay > than [address]: home with home care vs SNF
--- NOTE | 2020-08-17 17:54 | ECHOF ---
Referral Reason:Thrombus MEASUREMENTS -------- HEIGHT: 152.4 cm WEIGHT: 59.0 kg BP: 105/54 RVIDd: 2.8 cm (< 3.3) IVSd: 1.3 cm (0.6 - 1.1) LVIDd: 4.7 cm (3.9 - 5.3) LVPWd: 1.1 cm (0.6 - 1.1) IVSs: 1.6 cm LVIDs: 3.3 cm LVPWs: 1.6 cm LAESV Index (A-L): 28.97 ml/m Ao Diam: 3.3 cm (2.0 - 3.7) AV Cusp: 1.8 cm (1.5 - 2.6) MV EXCURSION: 21.694 mm (> 18.000) MV EF SLOPE: 53 mm/s (70 - 150) EPSS: 0.6 cm AR PHT: 530 ms RAP: 5.00 mmHg RVSP: 38.74 mmHg FINDINGS -------- This was a technically adequate study. The left ventricular size is normal. There is mild concentric left ventricular hypertrophy. Overa ll left ventricular systolic function is normal with, an EF between 55 - 60 %. The right ventricle is normal in size. Normal LA size by volume 22+/-6 ml/m2. The right atrial size is normal. Interatrial and interventricular septum intact. There is mild aortic regurgitation. There is no evidence of aortic stenosis. There is trace mitral regurgitation. Mild tricuspid regurgitation present. There is mild pulmonary hypertension. The right ventricular systolic pressure, as measured by Doppler, is 38.74mmHg. There is no pulmonic regurgitation present. The aortic root size is normal. IVC Not well visulized. There is no pericardial effusion. CONCLUSIONS -------- 1. The left ventricular size is normal. 2. There is mild concentric left ventricular hypertrophy. 3. Overall left ventricular systolic function is normal with, an EF between 55 - 60 %. 4. There is mild aortic regurgitation. 5. There is trace mitral regurgitation. 6. Mild tricuspid regurgitation present. 7. There is mild pulmonary hypertension. 8. The right ventricular systolic pressure, as measured by Doppler, is 38.74mmHg. BURLAPPER: Monie Velez [facility]
[2020-08-17] MEDS: SODIUM CHLORIDE 0.9% 1,000 ML IV SCH ×2 (19:47→20:24)
[2020-08-17] MEDS: traZODone HCL 50 MG TAB PO SCH (21:18)
[2020-08-17] MEDS: ATORVASTATIN 10 MG TAB PO SCH (21:20)
[2020-08-18] MEDS ORDERED: ALPRAZolam 0.25 MG TAB PO PRN (01:41)
[2020-08-18] MEDS: SODIUM CHLORIDE 0.9% 1,000 ML IV SCH ×3 (05:21→17:13)
[2020-08-18] MEDS: LABETALOL 100 MG TAB PO SCH (07:12)
[2020-08-18] MEDS: PANTOPRAZOLE 40 MG TABLET PO SCH (07:12)
[2020-08-18] MEDS: HEPARIN SODIUM,PORCINE/PF 5,000 UNIT/0.5 ML SYRINGE SQ SCH (07:12)
[2020-08-18] MEDS: HYDROcodone/APAP 5-325MG 1 EACH TAB PO PRN ×2 (07:23→18:23)
[2020-08-18 07:32] VITALS: TEMP 98.2
[2020-08-18] MEDS ORDERED: ASPIRIN 325 MG TAB PO SCH (09:00)
--- NOTE | 2020-08-18 09:47 | P.CNNES ---
History of Present Illness Consult date: 08/17/20 Requesting physician: Chivo Randolph Reason for Consult: Ataxia History of Present Illness: Patient is a 80-year-old female with history of advanced dementia who came to the hospital yesterday at 11:49 AM with inability to walk. Last known well was 10:30 the night prior when patient went to bed. Patient woke up and was unable to straighten up or get out of bed. Patient has history of similar symptoms previously associated with urinary tract infections. Patient is on chronic nitrofurantoin for this. Apparently it was reported patient has been dragging her right leg over the past couple of months. Vital signs are arrival blood pressure 120/84, pulse rate 86, temperature 99.1 computed tomography scan of the head showed stable age-related atrophy and chronic small vessel ischemic changes. There is definite prominence of the lateral ventricles, slightly more than the amount of cortical atrophy. The fourth ventricle does not appear to be dilated. Chest x-ray showed correlated to exclude congestive heart failure, pneumonia. EKG with normal sinus rhythm. Moderate voltage criteria for LVH. May be a normal variant. CTA of head and neck showed significant motion deterioration. The CTA images of head are nondiagnostic. Limited visualization of the carotid arteries and vertebral arteries. These calcified atherosclerotic disease of the bilateral carotid bulbs. Recommend repeat CTA of head and neck are carotid ultrasound for further characterization as clinically indicated, was patient is able to cooperate with examination. Patient's son was present at this time who also provided with a history. He states that patient does have dementia that started 2-3 years ago which has progressed. She knows her kids and family. She forgets ear or the date of births. She does repeat and forgets things. She lives with her son and [id number]. She uses walker at home or walks with hanging on to someone else. Patient's son agrees that when she has UTI, it throws her balance off. He has been noticing that it is struggle to move her right leg. Sometimes she drags. She also has low back pain. Denies any weakness of the arms. No slurred speech facial droop problem with the vision or headache. She does have chronic low back issues. No history of diabetes. She has hypertension. Never smoked. Review of Systems As mentioned above in HPI. All other review of systems noncontributory. Patient has had history of chronic back pain since she fell on the ice in 1976. Past Medical History Past Medical History: Cancer, Dementia, Hyperlipidemia, Hypertension Additional Past Medical History / Comment(s): colon cancer History of Any Multi-Drug Resistant Organisms: None Reported Past Surgical History: Orthopedic Surgery Additional Past Surgical History / Comment(s): hip replacment. Past Psychological History: No Psychological Hx Reported Smoking Status: Never smoker Past Alcohol Use History: None Reported Past Drug Use History: None Reported - Past Family History Father Additional Family Medical History / Comment(s): pt unable to give history Medications and Allergies Home Medications Medication Instructions Recorded Confirmed Type Atorvastatin [Lipitor] 10 mg PO HS 07/25/19 08/16/20 History Labetalol HCl 100 mg PO BID 07/25/19 08/16/20 History Aspirin EC [Ecotrin Low Dose] 81 mg PO DAILY 08/16/20 08/16/20 History Methenamine Hippurate 1 gm PO DAILY 08/16/20 08/16/20 History Pantoprazole Sodium [Protonix] 40 mg PO DAILY 08/16/20 08/16/20 History traZODone HCL 75 mg PO HS 08/16/20 08/16/20 History Donepezil [Aricept] 5 mg PO HS tab 08/18/20 Rx HYDROcodone/APAP 5-325MG [[place] 1 tab PO DAILY PRN #3 tab 08/18/20 Rx 5-325] HYDROcodone/APAP 5-325MG [[place] 1 tab PO HS #3 tab 08/18/20 Rx 5-325] Allergies Allergy/AdvReac Type Severity Reaction Status Date / Time No Known Allergies Allergy Verified 08/17/20 14:28 Physical Examination - Vital Signs Vital Signs: Vital Signs Temp Pulse Pulse Resp BP BP Pulse Ox 08/17/20 08:50 98.9 F 97 21 162/97 95 08/16/20 23:06 98.1 F 08/16/20 21:11 96 08/16/20 21:09 105/54 08/16/20 17:00 17 08/16/20 15:17 94 18 141/89 98 08/16/20 11:57 99.1 F 86 18 120/84 96 Patient is an elderly female, laying comfortably in the bed. Patient is somewhat restless. She is slightly confused as well. Patient had received trazodone for sleeping about an hour ago. Patient is alert awake. She states it is January. Could not tell the year. She knows name of her son Ramiro. She could not tell name of the current president although she admits it's not Mr. Lama. When it was asked if it is Mr. Hamilton or Jose, patient states Mr. Garcia is a president. Speech and language functions are normal. Patient can name. Attention, concentration and fund of knowledge is limited. On cranial examination, pupils are round and reacting to light, visual decker were difficult to check because of her noncooperation, extraocular muscles are intact with no nystagmus. Face is symmetric, tongue protrudes to the midline. Palatal elevation and sensation normal, hearing is moderately decreased and shoulder shrug normal, facial sensation normal. Shoulder shrug normal. On muscle strength testing, there is no pronator drift and the strength is normal in arms distally and proximally. In the lower limbs (right/left) hip flexion 4-/5, knee extension 5-/5-, ankle dorsiflexion 5/5, plantarflexion 5/5 Deep tendon reflexes are symmetric and plantars downgoing. Sensory to touch is equal. Cerebellar function showed no ataxia for [id number] testing. Tone and bulk of muscles normal. Gait not checked. On general examination, there is no carotid bruit or murmur, S1-S2 audible. Abdomen is soft nontender. Chest is clear. Peripheral pulses are present. Results - Laboratory Findings CBC and BMP: 08/16/20 12:51 08/16/20 12:51 Abnormal Lab Findings: Abnormal Labs 08/16/20 08/16/20 08/16/20 12:51 12:51 12:51 Lymphocytes # 0.9 L BUN 23 H Glucose 104 H Urine Appearance Cloudy H Urine Protein Trace H Ur Leukocyte Esterase Large H Urine WBC 110 H Urine Bacteria Many H Urine Mucus Rare H Assessment and Plan Assessment: * Altered mental status, possible due to UTI. * Subjective right leg weakness, rule out TIA. Patient's family believes that this happens when she has UTI. Also patient has chronic back issues. * Acute UTI, on Rocephin. * Dementia at least moderate in degree. * Chronic low back pain. Plan: * Carotid Doppler, as CTA of the head and neck was nondiagnostic. * 2-D echo shows normal left ventricular size. Mild concentric LVH. EF is between 55-60%. Mild AR. Trace MR. * Total cholesterol 133, LDL 68, HDL 46 and triglycerides 91. * Continue aspirin 325 mg and Lipitor 10 mg daily. * We will check B12, folate, TSH. * Start Aricept 5 mg daily for dementia.
--- NOTE | 2020-08-18 10:44 | US ---
EXAMINATION TYPE: US carotid duplex BILAT DATE OF EXAM: 08/18/2020 COMPARISON: NONE CLINICAL HISTORY: Altered mental status, leg weakness, rule out TIA. AMS EXAM MEASUREMENTS: RIGHT: Peak Systolic Velocity (PSV) cm/sec ----- Right CCA: 56.7 ----- Right ICA: 59.3 ----- Right ECA: 69.3 ICA/CCA ratio: 1.0 RIGHT: End Diastole cm/sec ----- Right CCA: 14.0 ----- Right ICA: 16.6 ----- Right ECA: 9.5 LEFT: Peak Systolic Velocity (PSV) cm/sec ----- Left CCA: 52.2 ----- Left ICA: 69.3 ----- Left ECA: 58.8 ICA/CCA ratio: 1.3 LEFT: End Diastole cm/sec ----- Left CCA: 15.5 ----- Left ICA: 15.2 ----- Left ECA: 15.4 VERTEBRALS (direction of flow): Right Vertebral: Antegrade Left Vertebral: Antegrade Rhythm: Normal patient has altered mental status, cannot lay down, sitting upright, crying, can't hold still, avila ited assessment. Heterogeneous plaque at bilateral bulbs with no significant stenosis IMPRESSION: 1. Bilateral heterogeneous plaque with no significant hemodynamic stenosis. Criteria for Assigning % of Stenosis / Diameter reduction (Estimation based on the indirect measurements of the internal carotid artery velocities (ICA PSV). 1. Normal (no stenosis)=ICA PSV < 125 cm/s: ratio < 2.0: ICA EDV<40 cm/s. 2. Less than 50% stenosis=ICA PSV < 125 cm/s: ratio < 2.0: ICA EDV<40 cm/s. 3. 50 to 69% stenosis=ICA PSV of 125 to 230 cm/s: ration 2.0 ? 4.0: ICA EDV 40-100 cm/s. 4. Greater than 70% stenosis to near occlusion= ICA PSV > 230 cm/s: ratio > 4.0: ICA EDV > 100 cm/s. 5. Near occlusion= ICA PSV velocities may be low or undetectable: variable ratio and ICA EDV. 6. Total occlusion=unable to detect flow.
[2020-08-18 14:12] VITALS: BP 147/91; PULSE 76; RESP 15
--- NOTE | 2020-08-18 14:36 | P.DS ---
Providers Date of admission: 08/16/20 15:20 Expected date of discharge: 08/18/20 Attending physician: Denver Dallas MD Consults: 08/16/20 15:15 Consult Physician Urgent Consulting Provider: Rocky Damian Consult Reason/Comments: ataxia Do you want consulting provider notified?: Yes Primary care physician: Lc Apple Hospital Course: Discharge Diagnosis: Dementia with ataxia, acute CVA ruled out History of chronic urinary tract infection, currently culture negative Hypertension Dyslipidemia Dementia with delirium, acute encephalopathy ruled out Acute urinary tract infection ruled out History of hemorrhagic stroke Hospital Course: Patient is an 80-year-old female with hypertension, dyslipidemia, prior colon cancer as well as advanced dementia who presented with worsening ataxia for 2 weeks time. In the ER she underwent a head CT which showed age-related atrophy and chronic small vessel ischemic changes. They attempted a CT of the head and neck which was nondiagnostic due to agitation. She ultimately ended up having a carotid Doppler done which showed no hemodynamic significant stenosis. Echocardiogram showed an ejection fraction 55-60% with mild concentric LVH. She was cleared by neurology for discharge. She has had issues of chronic urinary tract infection, culture here was negative. She was determined stable for discharge to subacute rehab to continue to work on her gait disturbance. Pending: Vitamin B12 level Patient seen and examined at bedside. Patient seen and examined at bedside. She is asking to go home. She denies any nausea, headache, lightheadedness, dizziness, or chest pain. Vital signs reviewed and stable. General: non toxic, no distress, appears at stated age Derm: warm, dry Head: atraumatic, normocephalic, symmetric Eyes: EOMI, no lid lag, anicteric sclera Mouth: no lip lesion, mucus membranes moist Cardiovascular: S1S2 reg, no murmur, positive posterior tibial pulse bilateral, Lungs: CTA bilateral, no rhonchi, no rales , no accessory muscle use Abdominal: soft, nontender to palpation, no guarding, no appreciable organomegaly Ext: no gross muscle atrophy, no edema, no contractures Neuro: CN II-XI grossly intact, no focal neuro deficits, poor finger to nose Psych: Awake, alert to self, looking for her son that she lives with. A total of 35 minutes of time were spent preparing this complex discharge summary . Plan - Discharge Summary New Discharge Prescriptions: New Donepezil [Aricept] 5 mg PO HS tab Continue Atorvastatin [Lipitor] 10 mg PO HS Labetalol HCl 100 mg PO BID Pantoprazole Sodium [Protonix] 40 mg PO DAILY Aspirin EC [Ecotrin Low Dose] 81 mg PO DAILY traZODone HCL 75 mg PO HS Methenamine Hippurate 1 gm PO DAILY HYDROcodone/APAP 5-325MG [Marland 5-325] 1 tab PO HS #3 tab HYDROcodone/APAP 5-325MG [Marland 5-325] 1 tab PO DAILY PRN #3 tab PRN Reason: Pain Discontinued Nitrofurantoin Monohyd/M-Cryst [Macrobid] 100 mg PO Q12HR Discharge Medication List Atorvastatin [Lipitor] 10 mg PO HS 07/25/19 [History] Labetalol HCl 100 mg PO BID 07/25/19 [History] Aspirin EC [Ecotrin Low Dose] 81 mg PO DAILY 08/16/20 [History] Methenamine Hippurate 1 gm PO DAILY 08/16/20 [History] Pantoprazole Sodium [Protonix] 40 mg PO DAILY 08/16/20 [History] traZODone HCL 75 mg PO HS 08/16/20 [History] Donepezil [Aricept] 5 mg PO HS tab 08/18/20 [Rx] HYDROcodone/APAP 5-325MG [Marland 5-325] 1 tab PO DAILY PRN #3 tab 08/18/20 [Rx] HYDROcodone/APAP 5-325MG [Marland 5-325] 1 tab PO HS #3 tab 08/18/20 [Rx] Follow up [facility]ment[facility]Ref[facility] - As Needed Lc Apple MD [Primary Care Provider] - 1-2 days Activity/Diet/Wound Care/Special Instructions: Activity: as tolerated with assistance Diet: Regular Special Instructions: Fall precautions B 12 level pending Discharge Disposition: TRANSFER TO SNF/ECF
[2020-08-18] MEDS ORDERED: DONEPEZIL 5 MG TAB PO SCH (21:00)
[2020-08-19 01:57] LABS: Folate, Serum >24.0 ng/mL
--- NOTE | 2020-08-19 09:21 | P.PN ---
Subjective Progress Note Date: 08/18/20 Patient was seen for a follow-up. Patient's son was also present. Patient is ready to go home. Offers no complaints. Objective - Vital Signs Vital signs: Vital Signs Temp 98.2 F 08/18/20 14:11 Pulse 76 08/18/20 14:11 Resp 15 08/18/20 14:11 BP 147/91 08/18/20 14:11 Pulse Ox 95 08/18/20 14:11 Intake & Output 08/17/20 08/18/20 08/18/20 18:59 06:59 18:59 Other: Voiding Method Diaper # Voids 2 1 # Bowel Movements 1 1 - Exam Patient is an elderly female, laying comfortably in the bed. Speech and language functions are normal. Patient can name. Attention, concentration and fund of knowledge is limited. On cranial examination, pupils are round and reacting to light, visual decker are full on confrontation, extraocular muscles are intact with no nystagmus. Face is symmetric, tongue protrudes to the midline. Palatal elevation and s ensation normal, hearing is moderately decreased and shoulder shrug normal, facial sensation normal. Shoulder shrug normal. On muscle strength testing, there is no pronator drift and the strength is normal in arms distally and proximally. In the lower limbs (right/left) hip flexion 4-/5, knee extension 5-/5-, ankle dorsiflexion 5/5, plantarflexion 5/5 Deep tendon reflexes are symmetric and plantars downgoing. Sensory to touch is equal. Cerebellar function showed no ataxia for [id number] testing. Tone and bulk of muscles normal. Gait not checked. On general examination, there is no carotid bruit or murmur, S1-S2 audible. Abdomen is soft nontender. Chest is clear. Peripheral pulses are present. - Labs CBC & Chem 7: 08/16/20 12:51 08/16/20 12:51 Labs: Microbiology - Last 24 Hours (Table) 08/16/20 12:51 Urine Culture - Final Urine,Catheterized Assessment and Plan Assessment: * Altered mental status, possible due to UTI. * Subjective right leg weakness, rule out TIA. Patient's family believes that this happens when she has UTI. Also patient has chronic back issues. * Acute UTI, on Rocephin. * Dementia at least moderate in degree. * Chronic low back pain. Plan: * Carotid Doppler revealed bilateral heterogenous plaque, with no significant hemodynamic stenosis. * CTA of the head and neck was nondiagnostic. * 2-D echo shows normal left ventricular size. Mild concentric LVH. EF is between 55-60%. Mild AR. Trace MR. * Total cholesterol 133, LDL 68, HDL 46 and triglycerides 91. * Continue aspirin 325 mg and Lipitor 10 mg daily. * B12 415, folate >24, TSH 2.63. * Start Aricept 5 mg daily for dementia. * Neurologically clear for discharge.
== END 2020-08-18 19:17 ==
LOC: EC 11:49 → 4SSUR 15:20
PROVIDERS: ADMIT Internal Medicine; ATTEND Internal Medicine
DX: R27.0 Ataxia, unspecified (principal); F03.90 Unspecified dementia, unspecified severity, without behavioral disturbance, psychotic disturbance, mood disturbance, and anxiety; N39.0 Urinary tract infection, site not specified; R53.1 Weakness; R26.2 Difficulty in walking, not elsewhere classified; E78.5 Hyperlipidemia, unspecified; I10 Essential (primary) hypertension; R91.8 Other nonspecific abnormal finding of lung field; G89.29 Other chronic pain; M54.5 Low back pain; I67.82 Cerebral ischemia; M47.814 Spondylosis without myelopathy or radiculopathy, thoracic region; M19.90 Unspecified osteoarthritis, unspecified site; Z79.2 Long term (current) use of antibiotics; Z79.82 Long term (current) use of aspirin; Z79.891 Long term (current) use of opiate analgesic; Z79.899 Other long term (current) drug therapy; Z88.6 Allergy status to analgesic agent; Z86.16 Personal history of COVID-19; Z87.01 Personal history of pneumonia (recurrent); Z85.038 Personal history of other malignant neoplasm of large intestine; Z86.73 Personal history of transient ischemic attack (TIA), and cerebral infarction without residual deficits; Z87.440 Personal history of urinary (tract) infections; Z96.649 Presence of unspecified artificial hip joint
CPT/HCPCS: 96365; 96372 ×3; 99285; 36415; 94760; 93005; 93306; 97116; 97162; 97535; 97166; 83880; 80061; 80053; 84443; 82607; 82746; 84484; 85025; 85610; 85730; 81001; 87086; 87635; 71046; 93880; 70496; 70450; 70498; G0378 ×3; J0696 ×2; Q9967; J1644 ×3